=== PATIENT | male | born 1950 | race Caucasian/White ===

== ENCOUNTER 2018-06-29 11:04 | Inpatient (IN) | payer MEDICARE, MEDICAID ==
[2018-06-29] MEDS ORDERED: Sodium Chloride 0.9% 1,000 ML IV ONE (11:36)
[2018-06-29 12:04] LABS: INR 0.94 (0.5-1.4); PROTHROMBIN TIME (TEST) 9.8 SECONDS (9.5-11.5)
[2018-06-29 12:10] LABS: ALB/GLOB RATIO 1.1 (1.0-1.8); ALBUMIN 3.9 gm/dL (4.2-5.5); ANION GAP 12.6 (7.0-16.0); BILIRUBIN,TOTAL 0.4 mg/dL (0.3-1.0); CALCIUM SERUM 10.2 mg/dL (8.6-10.3); CARBON DIOXIDE 28.1 mEq/L (21.0-31.0); CREATININE - SERUM 1.8 mg/dL (0.7-1.3); GFR AFRICAN-AMERICAN 48.9 ml/min (>90); GFR NON AFRICAN-AMERICAN 40.4 ml/min; POTASSIUM SERUM 4.7 mEq/L (3.5-5.1); TOTAL PROTEIN,SERUM 7.5 gm/dL (6.0-8.3)
--- NOTE | 2018-06-29 12:14 | ED Physician Chart ---
ED Chief Complaint/HPI - Patient Information Date Seen:: 06/29/18 Time Seen:: 11:05 Chief Complaint:: Back Pain History of Present Illness:: onset x 2 days of intermittent, sharp, low back pain and flank pain; pt denies trauma, SIs, LOC, ALOCC, AMS, H/As, S/T, neck pain, cough, C/P, SOB, Abd. Pain, A/N/V/D/C, fever, chills, or urinary s/s Allergies:: Allergies Allergy/AdvReac Type Severity Reaction Status Date / Time shellfish derived Allergy Verified 06/29/18 11:12 Vitals:: Vital Signs - 8 hr 06/29/18 11:05 Temp 98.3 F HR 73 RR 16 BP 159/94 O2 Sat % 95 Historian:: Patient, EMS Review:: Nurse's Note Reviewed, Old Chart Reviewed, EMS run form Reviewed ED Review of Systems - Review of Systems General/Constitutional: No fever, No chills, No weight loss, No weakness, No diaphoresis, No edema, No loss of appetite Skin: No skin lesions, No rash, No bruising Head: No headache, No light-headedness Eyes: No loss of vision, No pain, No diplopia ENT: No earache, No nasal drainage, No sore throat, No tinnitus Neck: No neck pain, No swelling, No thyromegaly, No stiffness, No mass noted Cardio Vascular: No chest pain, No palpitations, No PND, No orthopnea, No edema Pulmonary: No SOB, No cough, No sputum, No wheezing GI: No nausea, No vomiting, No diarrhea, No pain, No melena, No hematochezia, No constipation, No hematemesis G/U: No dysuria, No frequency, No hematuria, No nacturia Musculoskeletal: Bone or joint pain, Back pain, Muscle pain Endocrine: No polyuria, No polydipsia Psychiatric: Prior psych history, Depression, Anxiety, No suicidal ideation, No homicidal ideation, No auditory hallucination, No visual hallucination Hematopoietic: No bruising, No lymphadenopathy Allergic/Immuno: No urticaria, No angioedema Neurological: No syncope, No focal symptoms, No weakness, No paresthesia, No headache, Seizure, No dizziness, No confusion, No vertigo ED Past Medical History - Past Medical History Obtainable: Yes Past Medical History: HTN, Asthma/COPD, PUD/GERD, Seizures, Arthritis Family History: HTN Social History: Smoker, Alcohol, No Drug Use, Single, Care Facility Surgical History: None Psychiatricy History: Depression, Bipolar Medication: Reviewed Family Medical History - Family Member Mother History Unknown: Yes ED Physical Exam - Physical Examination General/Constitutional: Awake, Well-developed, well-nourished, Alert, No distress, GCS 15, Non-toxic appearing, Ambulatory Head: Atraumatic Eyes: Lids, conjuctiva normal, PERRL, EOMI Skin: Nl inspection, No rash, No skin lesions, No ecchymosis, Well hydrated, No lymphadenopathy ENMT: External ears, nose nl, TM canals nl, Nasal exam nl, Lips, teeth, gums nl , Oropharynx nl, Tonsils nl Neck: Nontender, Full ROM w/o pain, No JVD, No nuchal rigidity, No bruit, No mass, No stridor Respiratory: Nl effort/Exclusion, Clear to Auscultation, No Wheeze/Rhonchi/Rales Cardio Vascular: RRR, No murmur, gallop, rubs, NL S1 S2, Carotid/Femoral/Distal pulses equal bilaterally GI: No tenderness/rebounding/guarding, No organomegaly, No hernia, Normal BS's, Nondistended, No mass/bruits, No McBurney tenderness : No CVA tenderness Extremities: No tenderness or effusion, Full ROM, normal strength in all extremities, No edema, Normal digits & nails Neuro/Psych: Alert/oriented, DTR's symmetric, Normal sensory exam, Normal motor strength, Judgement/insight normal, Mood normal, Normal gait, No focal deficits Misc: Normal back, No paraspinal tenderness ED Labs/Radiology/EKG Results - Lab Results Comments:: Reviewed - Radiology Results Comments:: CXR: COPD; NAD; Abd./Pelvis CAT Scan: + left renal mass; left kidney hemorrhagic cysts; left renal stone - EKG Interpretations EKG Time:: 12:08 Rate & Rhythm: 72; NSR Comments:: non-specific st-t changes; LAE; Peaked T-Waves ED Septic Shock - . Is Septic Shock (SBP<90, OR Lactate>4 mmol\L) present?: No - <6hrs of presentation: Vital Signs: Vital Signs - 8 hr 01/02/19 11:05 Temp 98.3 F HR 73 RR 16 BP 159/94 O2 Sat % 95 ED Reassessment (Disposition) - Reassessment Reassessment Condition:: Improved - Diagnosis Diagnosis:: Back Pain; Low Back Pain; Flank Pain; COPD; Nephrolithiasis; Renal Calculus; Renal Cysts; Renal Mass; Hematuria; Dehydration; Pancreatitis; Hypoalbuminemia - Aftercare/Follow up Instructions Aftercare/Follow-Up Instructions:: Counseled pt regarding lab results/diagnosis & need follow up, Counseled pt & family regarding lab results/diagnosis & need follow up - Patient Disposition Discharge/Transfer:: Acute Care w/in this hosp Accepting Physician:: Dr. Jarquin Time Called:: 1300 Time Responded:: 13:00 Admitted to:: Telemetry Spoke to:: Dr. Jarquin Admitting Medical Physician:: Dr. Jarquin Condition at Disposition:: Stable, Improved
--- NOTE | 2018-06-29 12:20 | Diagnostic Imaging Report ---
CHEST X-RAY: AP view INDICATION: pain COMPARISON: None FINDINGS: Mild chronic lung changes seen with biapical pleural thickening and probable COPD. There is no focal consolidation or pleural effusions The heart is normal in size. The osseous structures demonstrate no acute abnormalities. IMPRESSION: Mild chronic lung changes and probable COPD. No focal consolidation identified.
--- NOTE | 2018-06-29 12:30 | Diagnostic Imaging Report ---
CT abdomen and pelvis without intravenous contrast Indication: Abdominal pain Comparison: None, Technique: Axial images were obtained from the lung bases to the bilateral proximal femurs without IV contrast. Coronal reconstructions were made. total DLP: 397, CTDI7.7 FINDINGS: Hypoventilatory atelectatic changes of the lung bases are seen. Punctate faint tree-in-bud infiltrates of the lower lung zones are seen anteriorly. Mild atherosclerosis is noted. Evaluation of the solid organs is limited due to lack of IV contrast. Subcentimeter low-density lesion of the dome of the liver is noted to small to characterize but suggestive of cysts additional . 1.2 cm inferior pole hepatic cyst is also noted. No focal splenic lesions. No focal intrahepatic lesions. There is a heterogeneous mass lesion within the left kidney along the mid pole measuring 5.3 x 3.5 cm. Subcentimeter high density lesions of the left kidney are noted. Bilateral perinephric inflammatory changes are noted left greater than right. 2 mm nonobstructive inferior pole left renal stone is noted. Diverticulosis is noted with moderate stool throughout the colon nonspecific gas-filled bowel. No appendicitis. No free air free fluid. The osseous structures demonstrate no acute abnormalities. Mild degenerative changes are noted. IMPRESSION: Heterogeneous left renal mass measuring 4.6 x 4.3 cm not compatible with a cyst. Neoplastic process such as renal cell carcinoma may be considered. Recommend further assessment CT, dedicated renal mass protocol Additional subcentimeter high density lesions of the left kidney which may represent hemorrhagic cysts. Nonspecific bilateral perinephric inflammatory changes. 2 mm nonobstructive left renal stone. Moderate stool throughout the colon. Diverticulosis without evidence of diverticulitis Moderate atherosclerosis Minimal bibasal tree-in-bud infiltrate which is nonspecific and may be due to infectious or inflammatory process.
[2018-06-29 13:04] LABS: URINE SOURCE CLEAN C
[2018-06-29 13:18] LABS: URINE BILIRUBIN NEGATIVE (NEGATIVE); URINE BLOOD LARGE (NEGATIVE); URINE GLUCOSE (UA) NEGATIVE (NEGATIVE); URINE KETONE NEGATIVE (NEGATIVE); URINE LEUKOCYTE ESTERASE NEGATIVE (NEGATIVE); URINE MICROSCOPIC INDICATED? YES; URINE NITRATE NEGATIVE (NEGATIVE); URINE PH 6.5 (4.6 - 8.0); URINE PROTEIN 100 mg/dL (NEGATIVE); URINE UROBILINOGEN 0.2 E.U./dL (0.2 - 1.0)
[2018-06-29 13:35] LABS: URINE COLOR YELLOW
[2018-06-29 13:36] LABS: URINE BACTERIA NONE SEEN /hpf (NONE SEEN); URINE CLARITY SLIGHTLY HAZY (CLEAR); URINE EPITHELIAL CELLS OCCASIONAL /lpf (FEW); URINE WBC 0-2 /hpf (0-5)
[2018-06-29 13:47] LABS: WHITE BLOOD COUNT 14.8 Th/cmm (4.8-10.8)
[2018-06-29 13:48] LABS: % NEUTROPHILS 80.7 % (40.0-80.0); HEMATOCRIT 37.2 % (41.0-60); HEMOGLOBIN 12.4 gm/dL (12-16); MEAN CELL VOLUME 96.2 fl (80-99); MEAN CORPUSCULAR HEMOGLOBIN 32.2 pg (27.0-31.0); MEAN CORPUSCULAR HGB CONC 33.5 pg (28.0-36.0); MEAN PLATELET VOLUME 8.7 fl; PLATELET COUNT 278 Th/cmm (150-400); RED BLOOD COUNT 3.87 Mil/cmm (3.80-5.80); RED CELL DISTRIBUTION WIDTH 12.8 % (11.5-20.0)
[2018-06-29 13:49] LABS: % BASOPHILS 0.1 % (0.0-2.0); % EOSINOPHILS 0.1 % (0.0-5.0); % LYMPHOCYTES 7.6 % (20.0-50.0); % MONOCYTES 11.5 % (2.0-10.0); LYMPHOCYTE ABSOLUTE 1.1 Th/cmm (1.5-3.0); MONOCYTE ABSOLUTE 1.7 Th/cmm (0.3-1.0)
[2018-06-29] MEDS ORDERED: Maalox 30 mL Cup PO PRN (14:33)
[2018-06-29] MEDS ORDERED: Ipratropium Neb 0.5 mg/2.5 mL UD IH PRN (14:33)
[2018-06-29] MEDS ORDERED: Albuterol Nebulizer 2.5mg/3mL HHN PRN (14:33)
[2018-06-29] MEDS: D5-0.9%NS 1,000 ML IV SCH (15:40)
--- NOTE | 2018-06-29 15:46 | History & Physical ---
ADMIT DATE: 06/29/2018 CHIEF COMPLAINT: Severe back pain. HISTORY OF PRESENT ILLNESS: This is a 67-year-old male with history of COPD, chronic low back pain, herniated disk, psych disorder, admitted from nursing facility secondary to excruciating back pain, recently evaluated in the ER and noted to have hematuria as well as noted to have a mass on the left kidney. The patient is admitted for further management. PAST MEDICAL HISTORY: As mentioned in history of present illness. PAST SURGICAL HISTORY: Denies surgeries in the past. ALLERGIES: SHELLFISH. MEDICATIONS: Previously was on Depakote, Seroquel, trazodone. FAMILY HISTORY: Noncontributory. SOCIAL HISTORY: The patient is avid smoker, occasional drinker ____ unemployed, homeless time for several years. The patient was initially admitted to [facility] and a later to [facility]. REVIEW OF SYSTEMS: GENERAL: Complains not feeling well. HEENT: No blurred vision or pain. LUNGS: The patient does have COPD, chronic smoker. Denies asthma. HEART: No hypertension or coronary artery disease. ABDOMEN: Some nausea, no vomiting. EXTREMITIES: As mentioned above. RENAL: No blood in the urine. PSYCHIATRIC: See above. NEUROLOGIC: Denies seizure or headaches. PHYSICAL EXAMINATION: VITAL SIGNS: Blood pressure 135/81, respiration 16, pulse 101, temperature 99.0. GENERAL: Elderly male, appears of stated age. NECK: Supple. No mass. LUNGS: Equal breath sounds, few rhonchi. HEART: Regular rate and rhythm. Systolic ejection murmur. ABDOMEN: Soft, globular. EXTREMITIES: Positive excoriation. NEUROLOGIC: Limited. LABORATORY DATA: WBC 14, hemoglobin 12, platelets 278. Sodium 137, potassium 4.7, BUN 27, creatinine 1.8. BNP 115. Lipase 137. RBC urine is 5 ____ blood. ASSESSMENT AND PLAN: Acute back pain, new diagnosis like left kidney mass on CT, renal insufficiency, COPD, low back pain, psych disorder, leukocytosis, elevated lipase, hematuria. We will continue the patient on aggressive IV hydration. We will review the patient's CT and plan accordingly. We will refer the patient to Hematology/Oncology. We will review the patient's medication. We will admit for further management. JOB# [id number]
[2018-06-30] MEDS: D5-0.9%NS 1,000 ML IV SCH ×2 (01:36→15:31)
--- NOTE | 2018-06-30 12:57 | Internal Medicine Prog Note ---
Internal Medicine Subjective - Subjective Patient seen and examined:: with staff, chart reviewed Patient is:: awake, verbal, interactive, in bed Patient Complaints of:: congestion, pain with urination Per staff patient has:: no adverse event, no episodes of fall, poor appetite, tolerating meds Internal Medicine Objective - Results Result Diagrams: 06/29/18 11:45 06/29/18 11:45 Recent Labs: Laboratory Last Values WBC 14.8 Th/cmm (4.8-10.8) H 06/29/18 11:45 RBC 3.87 Mil/cmm (3.80-5.80) 06/29/18 11:45 Hgb 12.4 gm/dL (12-16) 06/29/18 11:45 Hct 37.2 % (41.0-60) L 06/29/18 11:45 MCV 96.2 fl (80-99) 06/29/18 11:45 MCH 32.2 pg (27.0-31.0) H 06/29/18 11:45 MCHC Differential 33.5 pg (28.0-36.0) 06/29/18 11:45 RDW 12.8 % (11.5-20.0) 06/29/18 11:45 Plt Count 278 Th/cmm (150-400) 06/29/18 11:45 MPV 8.7 fl 06/29/18 11:45 Neutrophils % 80.7 % (40.0-80.0) H 06/29/18 11:45 Lymphocytes % 7.6 % (20.0-50.0) L 06/29/18 11:45 Monocytes % 11.5 % (2.0-10.0) H 06/29/18 11:45 Eosinophils % 0.1 % (0.0-5.0) 06/29/18 11:45 Basophils % 0.1 % (0.0-2.0) 06/29/18 11:45 PT 9.8 SECONDS (9.5-11.5) 06/29/18 11:45 INR 0.94 (0.5-1.4) 06/29/18 11:45 Sodium 137 mEq/L (136-145) 06/29/18 11:45 Potassium 4.7 mEq/L (3.5-5.1) 06/29/18 11:45 Chloride 101 mEq/L (98-107) 06/29/18 11:45 Carbon Dioxide 28.1 mEq/L (21.0-31.0) 06/29/18 11:45 Anion Gap 12.6 (7.0-16.0) 06/29/18 11:45 BUN 27 mg/dL (7-25) H 06/29/18 11:45 Creatinine 1.8 mg/dL (0.7-1.3) H 06/29/18 11:45 Est GFR ( Amer) 48.9 ml/min (>90) 06/29/18 11:45 Est GFR (Non-Af Amer) 40.4 ml/min 06/29/18 11:45 BUN/Creatinine Ratio 15.0 06/29/18 11:45 Glucose 101 mg/dL (70-105) 06/29/18 11:45 Calcium 10.2 mg/dL (8.6-10.3) 06/29/18 11:45 Total Bilirubin 0.4 mg/dL (0.3-1.0) 06/29/18 11:45 AST 20 U/L (13-39) 06/29/18 11:45 ALT 11 U/L (7-52) 06/29/18 11:45 Alkaline Phosphatase 74 U/L (34-104) 06/29/18 11:45 Creatine Kinase 159 U/L (30-223) 06/29/18 11:45 Troponin I 0.01 ng/mL (0.01-0.05) 06/29/18 11:45 B-Natriuretic Peptide 115.0 pg/mL (5.0-100.0) H 06/29/18 11:45 Total Protein 7.5 gm/dL (6.0-8.3) 06/29/18 11:45 Albumin 3.9 gm/dL (4.2-5.5) L 06/29/18 11:45 Globulin 3.6 gm/dL 06/29/18 11:45 Albumin/Globulin Ratio 1.1 (1.0-1.8) 06/29/18 11:45 Triglycerides 81 mg/dL (<150) 06/29/18 11:45 Cholesterol 192 mg/dL (<200) 06/29/18 11:45 LDL Cholesterol Direct 129 mg/dL (75-193) 06/29/18 11:45 HDL Cholesterol 56 mg/dL (23-92) 06/29/18 11:45 Amylase 138 U/L (29-103) H 06/29/18 11:45 Lipase 97 U/L (11-82) H 06/29/18 11:45 Urine Source CLEAN C 06/29/18 12:58 Urine Color YELLOW 06/29/18 12:58 Urine Clarity SLIGHTLY HAZY (CLEAR) 06/29/18 12:58 Urine pH 6.5 (4.6 - 8.0) 06/29/18 12:58 Ur Specific [place] 1.015 (1.005-1.030) 06/29/18 12:58 Urine Protein 100 mg/dL (NEGATIVE) H 06/29/18 12:58 Urine Glucose (UA) NEGATIVE mg/dL (NEGATIVE) 06/29/18 12:58 Urine Ketones NEGATIVE mg/dL (NEGATIVE) 06/29/18 12:58 Urine Blood LARGE (NEGATIVE) H 06/29/18 12:58 Urine Nitrate NEGATIVE (NEGATIVE) 06/29/18 12:58 Urine Bilirubin NEGATIVE (NEGATIVE) 06/29/18 12:58 Urine Urobilinogen 0.2 E.U./dL (0.2 - 1.0) 06/29/18 12:58 Ur Leukocyte Esterase NEGATIVE (NEGATIVE) 06/29/18 12:58 Urine RBC 2-5 /hpf (0-5) H 06/29/18 12:58 Urine WBC 0-2 /hpf (0-5) 06/29/18 12:58 Ur Epithelial Cells OCCASIONAL /lpf (FEW) 06/29/18 12:58 Urine Bacteria NONE SEEN /hpf (NONE SEEN) 06/29/18 12:58 Valproic Acid 47.3 ug/mL (50.0-100.0) L 06/29/18 11:45 - Physical Exam Vitals and I&O: Vital Signs Temp 98.2 F 06/30/18 08:00 Pulse 73 06/30/18 08:00 Resp 18 06/30/18 08:00 BP 161/87 06/30/18 08:00 Pulse Ox 97 06/30/18 08:00 Intake & Output 06/29/18 06/30/18 06/30/18 18:59 06:59 18:59 Intake Total 950 1573.333 Balance 950 1573.333 Weight (lbs) 62.142 kg 62.142 kg Intake: Intake, IV Amount 993.333 D5-0.9%Ns 1,000 ml @ 100 993.333 mls/hr IV .Q10H [facility] Rx#: [id number] Oral 950 580 Other: # Voids 1 3 # Bowel Movements 0 Weight Source Bedscale Bedscale Active Medications: Current Medications Acetaminophen (Tylenol) 650 mg PO Q4H PRN PRN Reason: Pain Or Fever above 101 Stop: 08/28/18 14:32 Last Admin: 06/30/18 12:05 Dose: 650 mg Al Hydrox/Mg Hydrox/Simethicone (Maalox) 30 ml PO Q6H PRN PRN Reason: Dyspepsia Stop: 08/28/18 14:32 Albuterol Sulfate (Albuterol 2.5mg/3ml Neb Ud) 2.5 mg HHN Q2HRT PRN PRN Reason: Shortness of Breath or Wheeze Stop: 08/28/18 14:32 Aripiprazole (Abilify) 15 mg PO HS [facility]; Protocol Stop: 08/28/18 20:59 Divalproex Sodium (Depakote Dr) 1,000 mg PO 1300 [facility]; Protocol Stop: 08/29/18 12:59 Last Admin: 06/30/18 12:04 Dose: 1,000 mg Escitalopram Oxalate (Lexapro) 10 mg PO DAILY [facility]; Protocol Stop: 08/29/18 08:59 Last Admin: 06/30/18 09:09 Dose: 10 mg Dextrose/Sodium Chloride (D5-0.9%Ns) 1,000 mls @ 100 mls/hr IV .Q10H [facility] Stop: 08/28/18 14:44 Last Admin: 06/30/18 01:36 Dose: 100 mls/hr Ipratropium [place] (Atrovent Neb 0.5mg/2.5ml) 0.5 mg IH Q2HRT PRN PRN Reason: Shortness of Breath or Wheeze Stop: 08/28/18 14:32 Ondansetron HCl (Zofran) 4 mg IV Q8H PRN PRN Reason: Nausea / Vomiting Stop: 08/28/18 14:32 Trazodone HCl (Desyrel) 50 mg PO [facility]; Protocol Stop: 08/28/18 20:59 Zolpidem Tartrate (Ambien) 10 mg PO HS PRN PRN Reason: Insomnia Stop: 08/28/18 14:32 General: weak, appears older HEENT: NC/AT, PERRLA, thinning hair, poor dentition Neck: Supple, No JVD, No LAD Lungs: CTAB Cardiovascular: RRR, Normal S1, Normal S2, without murmur Abdomen: soft, non-tender, globular, positive bowel sound Extremities: excoriation, contracture Neurological: no change, disorganized Internal Medicine Assmt/Plan - Assessment Assessment: ASSESSMENT AND PLAN: Acute back pain, new diagnosis like left kidney mass on CT, renal insufficiency, COPD, low back pain, psych disorder, leukocytosis, elevated lipase, hematuria. - Plan Plan: We will continue the patient on aggressive IV hydration. We will review the patient's CT and plan accordingly. We will refer the patient to Hematology/Oncology. We will review the patient's medication. We will admit for further management.
[2018-07-01] MEDS: D5-0.9%NS 1,000 ML IV SCH ×3 (02:00→20:12)
[2018-07-01 07:13] LABS: HEMATOCRIT 31.2 % (41.0-60); HEMOGLOBIN 10.6 gm/dL (12-16); MEAN CELL VOLUME 94.7 fl (80-99); MEAN CORPUSCULAR HEMOGLOBIN 32.1 pg (27.0-31.0); MEAN CORPUSCULAR HGB CONC 33.8 pg (28.0-36.0); MEAN PLATELET VOLUME 7.9 fl; PLATELET COUNT 243 Th/cmm (150-400); RED BLOOD COUNT 3.29 Mil/cmm (3.80-5.80); RED CELL DISTRIBUTION WIDTH 12.5 % (11.5-20.0); WHITE BLOOD COUNT 10.9 Th/cmm (4.8-10.8)
[2018-07-01 07:31] LABS: ALBUMIN 3.2 gm/dL (4.2-5.5); ANION GAP 10.2 (7.0-16.0); BILIRUBIN,TOTAL 0.4 mg/dL (0.3-1.0); CALCIUM SERUM 9.4 mg/dL (8.6-10.3); CARBON DIOXIDE 26.4 mEq/L (21.0-31.0); CREATININE - SERUM 1.7 mg/dL (0.7-1.3); GFR AFRICAN-AMERICAN 52.3 ml/min (>90); GFR NON AFRICAN-AMERICAN 43.2 ml/min; MAGNESIUM 1.9 mg/dL (1.9-2.7); POTASSIUM SERUM 4.6 mEq/L (3.5-5.1); TOTAL PROTEIN,SERUM 6.4 gm/dL (6.0-8.3)
[2018-07-01 08:04] LABS: BAND NEUTROPHILE 2 % (0-10); BASOPHIL 0 % (0-3); EOSINOPHIL 2 % (0-5); LYMPHOCYTE 12 % (20-50); MONOCYTE 13 % (2-10); NEUTROPHILS 71 % (40-80)
--- NOTE | 2018-07-01 13:08 | Internal Medicine Prog Note ---
Internal Medicine Subjective - Subjective Patient seen and examined:: with staff, chart reviewed Patient is:: awake, verbal, interactive, in bed Patient Complaints of:: congestion, pain with urination Per staff patient has:: no adverse event, no episodes of fall, poor appetite, tolerating meds Internal Medicine Objective - Results Result Diagrams: 07/01/18 06:45 07/01/18 06:45 Recent Labs: Laboratory Last Values WBC 10.9 Th/cmm (4.8-10.8) H 07/01/18 06:45 RBC 3.29 Mil/cmm (3.80-5.80) L 07/01/18 06:45 Hgb 10.6 gm/dL (12-16) L 07/01/18 06:45 Hct 31.2 % (41.0-60) L 07/01/18 06:45 MCV 94.7 fl (80-99) 07/01/18 06:45 MCH 32.1 pg (27.0-31.0) H 07/01/18 06:45 MCHC Differential 33.8 pg (28.0-36.0) 07/01/18 06:45 RDW 12.5 % (11.5-20.0) 07/01/18 06:45 Plt Count 243 Th/cmm (150-400) 07/01/18 06:45 MPV 7.9 fl 07/01/18 06:45 Add Manual Diff YES 07/01/18 06:45 Neutrophils % 80.7 % (40.0-80.0) H 06/29/18 11:45 Band Neutrophils % 2 % (0-10) 07/01/18 06:45 Lymphocytes % 7.6 % (20.0-50.0) L 06/29/18 11:45 Monocytes % 11.5 % (2.0-10.0) H 06/29/18 11:45 Eosinophils % 0.1 % (0.0-5.0) 06/29/18 11:45 Basophils % 0.1 % (0.0-2.0) 06/29/18 11:45 Neutrophils (Manual) 71 % (40-80) 07/01/18 06:45 Lymphocytes 12 % (20-50) L 07/01/18 06:45 Monocytes 13 % (2-10) H 07/01/18 06:45 Eosinophils 2 % (0-5) 07/01/18 06:45 Basophils 0 % (0-3) 07/01/18 06:45 PT 9.8 SECONDS (9.5-11.5) 06/29/18 11:45 INR 0.94 (0.5-1.4) 06/29/18 11:45 Sodium 140 mEq/L (136-145) 07/01/18 06:45 Potassium 4.6 mEq/L (3.5-5.1) 07/01/18 06:45 Chloride 108 mEq/L (98-107) H 07/01/18 06:45 Carbon Dioxide 26.4 mEq/L (21.0-31.0) 07/01/18 06:45 Anion Gap 10.2 (7.0-16.0) 07/01/18 06:45 BUN 22 mg/dL (7-25) 07/01/18 06:45 Creatinine 1.7 mg/dL (0.7-1.3) H 07/01/18 06:45 Est GFR ( Amer) 52.3 ml/min (>90) 07/01/18 06:45 Est GFR (Non-Af Amer) 43.2 ml/min 07/01/18 06:45 BUN/Creatinine Ratio 12.9 07/01/18 06:45 Glucose 92 mg/dL (70-105) 07/01/18 06:45 Calcium 9.4 mg/dL (8.6-10.3) 07/01/18 06:45 Magnesium 1.9 mg/dL (1.9-2.7) 07/01/18 06:45 Total Bilirubin 0.4 mg/dL (0.3-1.0) 07/01/18 06:45 AST 16 U/L (13-39) 07/01/18 06:45 ALT 8 U/L (7-52) 07/01/18 06:45 Alkaline Phosphatase 54 U/L (34-104) 07/01/18 06:45 Creatine Kinase 159 U/L (30-223) 06/29/18 11:45 Troponin I 0.01 ng/mL (0.01-0.05) 06/29/18 11:45 B-Natriuretic Peptide 163.0 pg/mL (5.0-100.0) H 07/01/18 06:45 Total Protein 6.4 gm/dL (6.0-8.3) 07/01/18 06:45 Albumin 3.2 gm/dL (4.2-5.5) L 07/01/18 06:45 Globulin 3.2 gm/dL 07/01/18 06:45 Albumin/Globulin Ratio 1.0 (1.0-1.8) 07/01/18 06:45 Triglycerides 81 mg/dL (<150) 06/29/18 11:45 Cholesterol 192 mg/dL (<200) 06/29/18 11:45 LDL Cholesterol Direct 129 mg/dL (75-193) 06/29/18 11:45 HDL Cholesterol 56 mg/dL (23-92) 06/29/18 11:45 Amylase 138 U/L (29-103) H 06/29/18 11:45 Lipase 97 U/L (11-82) H 06/29/18 11:45 Urine Source CLEAN C 06/29/18 12:58 Urine Color YELLOW 06/29/18 12:58 Urine Clarity SLIGHTLY HAZY (CLEAR) 06/29/18 12:58 Urine pH 6.5 (4.6 - 8.0) 06/29/18 12:58 Ur Specific [place] 1.015 (1.005-1.030) 06/29/18 12:58 Urine Protein 100 mg/dL (NEGATIVE) H 06/29/18 12:58 Urine Glucose (UA) NEGATIVE mg/dL (NEGATIVE) 06/29/18 12:58 Urine Ketones NEGATIVE mg/dL (NEGATIVE) 06/29/18 12:58 Urine Blood LARGE (NEGATIVE) H 06/29/18 12:58 Urine Nitrate NEGATIVE (NEGATIVE) 06/29/18 12:58 Urine Bilirubin NEGATIVE (NEGATIVE) 06/29/18 12:58 Urine Urobilinogen 0.2 E.U./dL (0.2 - 1.0) 06/29/18 12:58 Ur Leukocyte Esterase NEGATIVE (NEGATIVE) 06/29/18 12:58 Urine RBC 2-5 /hpf (0-5) H 06/29/18 12:58 Urine WBC 0-2 /hpf (0-5) 06/29/18 12:58 Ur Epithelial Cells OCCASIONAL /lpf (FEW) 06/29/18 12:58 Urine Bacteria NONE SEEN /hpf (NONE SEEN) 06/29/18 12:58 Valproic Acid 47.3 ug/mL (50.0-100.0) L 06/29/18 11:45 - Physical Exam Vitals and I&O: Vital Signs Temp 97.6 F 07/01/18 12:12 Pulse 92 07/01/18 12:12 Resp 19 07/01/18 12:12 BP 145/81 07/01/18 12:12 Pulse Ox 100 07/01/18 12:12 Intake & Output 06/30/18 07/01/18 07/01/18 18:59 06:59 18:59 Intake Total 1000 1300 Output Total 1400 Balance 1000 -100 Weight (lbs) 61.915 kg Intake: Intake, IV Amount 1000 1000 D5-0.9%Ns 1,000 ml @ 100 1000 1000 mls/hr IV .Q10H [facility] Rx#: [id number] Oral 300 Output: Urine 1400 Other: # Bowel Movements 0 Weight Source Bedscale Active Medications: Current Medications Acetaminophen (Tylenol) 650 mg PO Q4H PRN PRN Reason: Pain Or Fever above 101 Stop: 08/28/18 14:32 Last Admin: 06/30/18 21:43 Dose: 650 mg Al Hydrox/Mg Hydrox/Simethicone (Maalox) 30 ml PO Q6H PRN PRN Reason: Dyspepsia Stop: 08/28/18 14:32 Albuterol Sulfate (Albuterol 2.5mg/3ml Neb Ud) 2.5 mg HHN Q2HRT PRN PRN Reason: Shortness of Breath or Wheeze Stop: 08/28/18 14:32 Aripiprazole (Abilify) 15 mg PO HS [facility]; Protocol Stop: 08/28/18 20:59 Last Admin: 06/30/18 21:41 Dose: Not Given Divalproex Sodium (Depakote Dr) 1,000 mg PO 1300 [facility]; Protocol Stop: 08/29/18 12:59 Last Admin: 06/30/18 12:04 Dose: 1,000 mg Escitalopram Oxalate (Lexapro) 10 mg PO DAILY [facility]; Protocol Stop: 08/29/18 08:59 Last Admin: 07/01/18 10:20 Dose: 10 mg Dextrose/Sodium Chloride (D5-0.9%Ns) 1,000 mls @ 100 mls/hr IV .Q10H [facility] Stop: 08/28/18 14:44 Last Admin: 07/01/18 02:00 Dose: 100 mls/hr Ipratropium [place] (Atrovent Neb 0.5mg/2.5ml) 0.5 mg IH Q2HRT PRN PRN Reason: Shortness of Breath or Wheeze Stop: 08/28/18 14:32 Ondansetron HCl (Zofran) 4 mg IV Q8H PRN PRN Reason: Nausea / Vomiting Stop: 08/28/18 14:32 Trazodone HCl (Desyrel) 50 mg PO HS [facility]; Protocol Stop: 08/28/18 20:59 Last Admin: 06/30/18 21:41 Dose: 50 mg Zolpidem Tartrate (Ambien) 10 mg PO HS PRN PRN Reason: Insomnia Stop: 08/28/18 14:32 General: weak, appears older HEENT: NC/AT, PERRLA, thinning hair, poor dentition Neck: Supple, No JVD, No LAD Lungs: CTAB Cardiovascular: RRR, Normal S1, Normal S2, without murmur Abdomen: soft, non-tender, globular, positive bowel sound Extremities: excoriation, contracture Neurological: no change, disorganized Internal Medicine Assmt/Plan - Assessment Assessment: ASSESSMENT AND PLAN: Acute back pain, new diagnosis left kidney mass on CT, renal insufficiency, COPD, low back pain, psych disorder, leukocytosis, elevated lipase, hematuria. - Plan Plan: We will continue the patient on aggressive IV hydration. We will review the patient's CT and plan accordingly. We will refer the patient to Hematology/Oncology. We will review the patient's medication. We will admit for further management.
--- NOTE | 2018-07-01 21:27 | History & Physical ---
ADMIT DATE: 07/01/2018 REFERRING PHYSICIAN: Dr. Jarquin. REASON FOR CONSULTATION: Kidney mass. HISTORY OF PRESENT ILLNESS: The patient is a 67-year-old pleasant person who spent many years in [place] and moved over to [place]. He has been complaining of left flank pain that was evaluated with a CT scan of the abdomen reporting left kidney mass; therefore, I was asked to evaluate. PAST MEDICAL HISTORY: COPD, chronic back pain, psych disorder. SOCIAL HISTORY: Resides in a convalescent home because of the chronic back pain. PAST SURGICAL HISTORY: None. MEDICATIONS: Reviewed, on Abilify, Depakote, Lexapro, Zofran, Desyrel, Ambien. PHYSICAL EXAMINATION: GENERAL: The patient is awake, cooperative. VITAL SIGNS: Stable. HEENT: Atraumatic. NECK: No lymphadenopathy. CHEST: Good air entry. ABDOMEN: Soft. No guarding or rebound. No palpable masses. EXTREMITIES: No edema. NERVOUS SYSTEM: No focal deficits. LABORATORY DATA: White count 10.9, hemoglobin 10.6, platelets 243. INR 0.94, creatinine 1.7. Urinalysis, large blood. CT scan of the abdomen and pelvis 4.6 x 4.3. Heterogeneous left renal mass. A 2 mm nonobstructing left renal stone, diverticulosis, subcentimeter high density lesions of the left kidney, may represent hemorrhagic cyst. ASSESSMENT AND PLAN: Left kidney mass exceeding 4 cm, which is not cyst. The scan was done without contrast because of the renal functions. This mass is suspicious of renal cell carcinoma and will require evaluation by urologist for possible left partial or total nephrectomy. Thank you, Dr. Jarquin for the opportunity to participate in the care of this interesting case. JOB# [id number]
--- NOTE | 2018-07-02 13:16 | General Progress Note ---
Subjective - Review of Systems Service Date: 07/02/18 Subjective: left flank pain ambulatory Objective - Results Result Diagrams: 07/01/18 06:45 07/01/18 06:45 Recent Labs: Laboratory Last Values WBC 10.9 Th/cmm (4.8-10.8) H 07/01/18 06:45 RBC 3.29 Mil/cmm (3.80-5.80) L 07/01/18 06:45 Hgb 10.6 gm/dL (12-16) L 07/01/18 06:45 Hct 31.2 % (41.0-60) L 07/01/18 06:45 MCV 94.7 fl (80-99) 07/01/18 06:45 MCH 32.1 pg (27.0-31.0) H 07/01/18 06:45 MCHC Differential 33.8 pg (28.0-36.0) 07/01/18 06:45 RDW 12.5 % (11.5-20.0) 07/01/18 06:45 Plt Count 243 Th/cmm (150-400) 07/01/18 06:45 MPV 7.9 fl 07/01/18 06:45 Add Manual Diff YES 07/01/18 06:45 Neutrophils % 80.7 % (40.0-80.0) H 06/29/18 11:45 Band Neutrophils % 2 % (0-10) 07/01/18 06:45 Lymphocytes % 7.6 % (20.0-50.0) L 06/29/18 11:45 Monocytes % 11.5 % (2.0-10.0) H 06/29/18 11:45 Eosinophils % 0.1 % (0.0-5.0) 06/29/18 11:45 Basophils % 0.1 % (0.0-2.0) 06/29/18 11:45 Neutrophils (Manual) 71 % (40-80) 07/01/18 06:45 Lymphocytes 12 % (20-50) L 07/01/18 06:45 Monocytes 13 % (2-10) H 07/01/18 06:45 Eosinophils 2 % (0-5) 07/01/18 06:45 Basophils 0 % (0-3) 07/01/18 06:45 PT 9.8 SECONDS (9.5-11.5) 06/29/18 11:45 INR 0.94 (0.5-1.4) 06/29/18 11:45 Sodium 140 mEq/L (136-145) 07/01/18 06:45 Potassium 4.6 mEq/L (3.5-5.1) 07/01/18 06:45 Chloride 108 mEq/L (98-107) H 07/01/18 06:45 Carbon Dioxide 26.4 mEq/L (21.0-31.0) 07/01/18 06:45 Anion Gap 10.2 (7.0-16.0) 07/01/18 06:45 BUN 22 mg/dL (7-25) 07/01/18 06:45 Creatinine 1.7 mg/dL (0.7-1.3) H 07/01/18 06:45 Est GFR ( Amer) 52.3 ml/min (>90) 07/01/18 06:45 Est GFR (Non-Af Amer) 43.2 ml/min 07/01/18 06:45 BUN/Creatinine Ratio 12.9 07/01/18 06:45 Glucose 92 mg/dL (70-105) 07/01/18 06:45 Calcium 9.4 mg/dL (8.6-10.3) 07/01/18 06:45 Magnesium 1.9 mg/dL (1.9-2.7) 07/01/18 06:45 Total Bilirubin 0.4 mg/dL (0.3-1.0) 07/01/18 06:45 AST 16 U/L (13-39) 07/01/18 06:45 ALT 8 U/L (7-52) 07/01/18 06:45 Alkaline Phosphatase 54 U/L (34-104) 07/01/18 06:45 Creatine Kinase 159 U/L (30-223) 06/29/18 11:45 Troponin I 0.01 ng/mL (0.01-0.05) 06/29/18 11:45 B-Natriuretic Peptide 163.0 pg/mL (5.0-100.0) H 07/01/18 06:45 Total Protein 6.4 gm/dL (6.0-8.3) 07/01/18 06:45 Albumin 3.2 gm/dL (4.2-5.5) L 07/01/18 06:45 Globulin 3.2 gm/dL 07/01/18 06:45 Albumin/Globulin Ratio 1.0 (1.0-1.8) 07/01/18 06:45 Triglycerides 81 mg/dL (<150) 06/29/18 11:45 Cholesterol 192 mg/dL (<200) 06/29/18 11:45 LDL Cholesterol Direct 129 mg/dL (75-193) 06/29/18 11:45 HDL Cholesterol 56 mg/dL (23-92) 06/29/18 11:45 Amylase 138 U/L (29-103) H 06/29/18 11:45 Lipase 97 U/L (11-82) H 06/29/18 11:45 Urine Source CLEAN C 06/29/18 12:58 Urine Color YELLOW 06/29/18 12:58 Urine Clarity SLIGHTLY HAZY (CLEAR) 06/29/18 12:58 Urine pH 6.5 (4.6 - 8.0) 06/29/18 12:58 Ur Specific [place] 1.015 (1.005-1.030) 06/29/18 12:58 Urine Protein 100 mg/dL (NEGATIVE) H 06/29/18 12:58 Urine Glucose (UA) NEGATIVE mg/dL (NEGATIVE) 06/29/18 12:58 Urine Ketones NEGATIVE mg/dL (NEGATIVE) 06/29/18 12:58 Urine Blood LARGE (NEGATIVE) H 06/29/18 12:58 Urine Nitrate NEGATIVE (NEGATIVE) 06/29/18 12:58 Urine Bilirubin NEGATIVE (NEGATIVE) 06/29/18 12:58 Urine Urobilinogen 0.2 E.U./dL (0.2 - 1.0) 06/29/18 12:58 Ur Leukocyte Esterase NEGATIVE (NEGATIVE) 06/29/18 12:58 Urine RBC 2-5 /hpf (0-5) H 06/29/18 12:58 Urine WBC 0-2 /hpf (0-5) 06/29/18 12:58 Ur Epithelial Cells OCCASIONAL /lpf (FEW) 06/29/18 12:58 Urine Bacteria NONE SEEN /hpf (NONE SEEN) 06/29/18 12:58 Valproic Acid 47.3 ug/mL (50.0-100.0) L 06/29/18 11:45 - Physical Exam Vitals and I&O: Vital Signs Temp 98.7 F 07/02/18 12:00 Pulse 77 07/02/18 12:00 Resp 18 07/02/18 12:00 BP 137/89 07/02/18 12:00 Pulse Ox 100 07/02/18 12:00 Intake & Output 07/01/18 07/02/18 07/02/18 18:59 06:59 18:59 Intake Total 1550 1200 Output Total 1780 1700 Balance -230 -500 Weight (lbs) 61.915 kg 62.913 kg Intake: Intake, IV Amount 1000 D5-0.9%Ns 1,000 ml @ 100 1000 mls/hr IV .Q10H [facility] Rx#: [id number] Oral 1550 200 Output: Urine 1780 1700 Other: # Bowel Movements 1 Weight Source Bedscale Bedscale Active Medications: Current Medications Acetaminophen (Tylenol) 650 mg PO Q4H PRN PRN Reason: Pain Or Fever above 101 Stop: 08/28/18 14:32 Last Admin: 07/01/18 21:00 Dose: 650 mg Al Hydrox/Mg Hydrox/Simethicone (Maalox) 30 ml PO Q6H PRN PRN Reason: Dyspepsia Stop: 08/28/18 14:32 Albuterol Sulfate (Albuterol 2.5mg/3ml Neb Ud) 2.5 mg HHN Q2HRT PRN PRN Reason: Shortness of Breath or Wheeze Stop: 08/28/18 14:32 Aripiprazole (Abilify) 15 mg PO HS [facility]; Protocol Stop: 08/28/18 20:59 Last Admin: 07/01/18 20:11 Dose: Not Given Divalproex Sodium (Depakote Dr) 1,000 mg PO 1300 [facility]; Protocol Stop: 08/29/18 12:59 Last Admin: 07/02/18 12:42 Dose: 1,000 mg Escitalopram Oxalate (Lexapro) 10 mg PO DAILY [facility]; Protocol Stop: 08/29/18 08:59 Last Admin: 07/02/18 08:19 Dose: 10 mg Dextrose/Sodium Chloride (D5-0.9%Ns) 1,000 mls @ 100 mls/hr IV .Q10H [facility] Stop: 08/28/18 14:44 Last Admin: 07/01/18 20:12 Dose: 100 mls/hr Ipratropium [place] (Atrovent Neb 0.5mg/2.5ml) 0.5 mg IH Q2HRT PRN PRN Reason: Shortness of Breath or Wheeze Stop: 08/28/18 14:32 Ondansetron HCl (Zofran) 4 mg IV Q8H PRN PRN Reason: Nausea / Vomiting Stop: 08/28/18 14:32 Trazodone HCl (Desyrel) 50 mg PO HS [facility]; Protocol Stop: 08/28/18 20:59 Last Admin: 07/01/18 20:11 Dose: 50 mg Zolpidem Tartrate (Ambien) 10 mg PO HS PRN PRN Reason: Insomnia Stop: 08/28/18 14:32 General: Alert HEENT: Atraumatic Neck: Supple Cardiovascular: Regular rate Lungs: Clear to auscultation Abdomen: Soft Assessment/Plan - Assessment Assessment: Left kidney mass exceeding 4 cm, which is not cyst. The scan was done without contrast because of the renal functions. This mass is suspicious of renal cell carcinoma and will require evaluation by urologist for possible left partial or total nephrectomy. Nutritional Asmnt/Malnutr-PDOC - Dietary Evaluation Malnutrition Findings (Please click <Entered> for more info): Nutritional Asmnt/Malnutrition Start: 07/01/18 14: 23 Text: Status: Complete Freq: Protocol: Document 07/01/18 14:27 [email or web address] (Rec: 07/01/18 14:37 [email or web address] VI) Nutritional Asmnt/Malnutrition Patient General Information Nutritional Screening Moderate Risk Diagnosis kidney mass, left lower back pain Pertinent Medical Hx/Surgical Hx COPD, chronic low back pain, herniated disk, psych disorder Subjective Information Pt was in bed, alert, at time of visit. Educated pt on renal diet. Pt requested 2 coffees for breakfast and hot tea for dinner. PO intake is 75-100% per EMR. Current Diet Order/ Nutrition Support renal Patient / S.O Can Pertinent Medications D5-0.9%ns, zofran Pertinent Labs 07/01 cl 108, cr 1.7, alb 3.2 1/2 BUN 27, cr 1.8, alb 3.9 Nutritional Hx/Data Height 1.73 m Height (Calculated Centimeters) 172.7 Current Weight (lbs) 61.689 kg Weight (Calculated Kilograms) 61.7 Weight (Calculated Grams) 39507.6 [place] Body Weight 154 Body Mass Index (BMI) 20.7 Weight Status Approriate GI Symptoms GI Symptoms None Last BM not indicated Difficult in: None Food Allergies Yes: shellfish derived Usual diet at home Pt has been following renal diet d/t renal dysfunction, understanding protein restriction. Skin Integrity/Comment: matthew carter 21 Current %PO Good (75-100%) Estimated Nutritional Goals BEE in Kcals: Using Current wt Calories/Kcals/Kg 25-30 Kcals Calculated 7647-6489 Protein: Using Current wt Protein g/k.75-0.8 Protein Calculated 45-49 Fluid: ml 6547-1858 (1ml/kcal) Nutritional Problem 1. Problem Problem altered nutrition related lab values Etiology renal dysfunction Signs/Symptoms: BUN 22-27, Cr 1.7-1.8 Malnutrition Alert Is there a minimum of two criteria No selected? Query Text:Check all the applicable criteria. A minimum of two criteria are recommended for diagnosis of either severe or non-severe malnutrition. Malnutrition Related to Morbid Obesity Malnutrition related to morbid obesity No Intervention/Recommendation Comments 1. Continue with renal diet as ordered. 2. Monitor PO intake, wt, labs and skin integrity 3. F/U as moderate risk in 3-5 days Expected Outcomes/Goals Expected Outcomes/Goals Goal: PO intake to meet at least 75% of nutritional needs and improved labs. Reviewed by Vijaya Tinajero RD
--- NOTE | 2018-07-02 14:27 | Internal Medicine Prog Note ---
Internal Medicine Subjective - Subjective Service Date: 07/02/18 Patient is:: awake, verbal, interactive, in bed Patient Complaints of:: congestion, pain with urination Per staff patient has:: no adverse event, no episodes of fall, poor appetite, tolerating meds Internal Medicine Objective - Results Result Diagrams: 07/01/18 06:45 07/01/18 06:45 Recent Labs: Laboratory Last Values WBC 10.9 Th/cmm (4.8-10.8) H 07/01/18 06:45 RBC 3.29 Mil/cmm (3.80-5.80) L 07/01/18 06:45 Hgb 10.6 gm/dL (12-16) L 07/01/18 06:45 Hct 31.2 % (41.0-60) L 07/01/18 06:45 MCV 94.7 fl (80-99) 07/01/18 06:45 MCH 32.1 pg (27.0-31.0) H 07/01/18 06:45 MCHC Differential 33.8 pg (28.0-36.0) 07/01/18 06:45 RDW 12.5 % (11.5-20.0) 07/01/18 06:45 Plt Count 243 Th/cmm (150-400) 07/01/18 06:45 MPV 7.9 fl 07/01/18 06:45 Add Manual Diff YES 07/01/18 06:45 Neutrophils % 80.7 % (40.0-80.0) H 06/29/18 11:45 Band Neutrophils % 2 % (0-10) 07/01/18 06:45 Lymphocytes % 7.6 % (20.0-50.0) L 06/29/18 11:45 Monocytes % 11.5 % (2.0-10.0) H 06/29/18 11:45 Eosinophils % 0.1 % (0.0-5.0) 06/29/18 11:45 Basophils % 0.1 % (0.0-2.0) 06/29/18 11:45 Neutrophils (Manual) 71 % (40-80) 07/01/18 06:45 Lymphocytes 12 % (20-50) L 07/01/18 06:45 Monocytes 13 % (2-10) H 07/01/18 06:45 Eosinophils 2 % (0-5) 07/01/18 06:45 Basophils 0 % (0-3) 07/01/18 06:45 PT 9.8 SECONDS (9.5-11.5) 06/29/18 11:45 INR 0.94 (0.5-1.4) 06/29/18 11:45 Sodium 140 mEq/L (136-145) 07/01/18 06:45 Potassium 4.6 mEq/L (3.5-5.1) 07/01/18 06:45 Chloride 108 mEq/L (98-107) H 07/01/18 06:45 Carbon Dioxide 26.4 mEq/L (21.0-31.0) 07/01/18 06:45 Anion Gap 10.2 (7.0-16.0) 07/01/18 06:45 BUN 22 mg/dL (7-25) 07/01/18 06:45 Creatinine 1.7 mg/dL (0.7-1.3) H 07/01/18 06:45 Est GFR ( Amer) 52.3 ml/min (>90) 07/01/18 06:45 Est GFR (Non-Af Amer) 43.2 ml/min 07/01/18 06:45 BUN/Creatinine Ratio 12.9 07/01/18 06:45 Glucose 92 mg/dL (70-105) 07/01/18 06:45 Calcium 9.4 mg/dL (8.6-10.3) 07/01/18 06:45 Magnesium 1.9 mg/dL (1.9-2.7) 07/01/18 06:45 Total Bilirubin 0.4 mg/dL (0.3-1.0) 07/01/18 06:45 AST 16 U/L (13-39) 07/01/18 06:45 ALT 8 U/L (7-52) 07/01/18 06:45 Alkaline Phosphatase 54 U/L (34-104) 07/01/18 06:45 Creatine Kinase 159 U/L (30-223) 06/29/18 11:45 Troponin I 0.01 ng/mL (0.01-0.05) 06/29/18 11:45 B-Natriuretic Peptide 163.0 pg/mL (5.0-100.0) H 07/01/18 06:45 Total Protein 6.4 gm/dL (6.0-8.3) 07/01/18 06:45 Albumin 3.2 gm/dL (4.2-5.5) L 07/01/18 06:45 Globulin 3.2 gm/dL 07/01/18 06:45 Albumin/Globulin Ratio 1.0 (1.0-1.8) 07/01/18 06:45 Triglycerides 81 mg/dL (<150) 06/29/18 11:45 Cholesterol 192 mg/dL (<200) 06/29/18 11:45 LDL Cholesterol Direct 129 mg/dL (75-193) 06/29/18 11:45 HDL Cholesterol 56 mg/dL (23-92) 06/29/18 11:45 Amylase 138 U/L (29-103) H 06/29/18 11:45 Lipase 97 U/L (11-82) H 06/29/18 11:45 Urine Source CLEAN C 06/29/18 12:58 Urine Color YELLOW 06/29/18 12:58 Urine Clarity SLIGHTLY HAZY (CLEAR) 06/29/18 12:58 Urine pH 6.5 (4.6 - 8.0) 06/29/18 12:58 Ur Specific [place] 1.015 (1.005-1.030) 06/29/18 12:58 Urine Protein 100 mg/dL (NEGATIVE) H 06/29/18 12:58 Urine Glucose (UA) NEGATIVE mg/dL (NEGATIVE) 06/29/18 12:58 Urine Ketones NEGATIVE mg/dL (NEGATIVE) 06/29/18 12:58 Urine Blood LARGE (NEGATIVE) H 06/29/18 12:58 Urine Nitrate NEGATIVE (NEGATIVE) 06/29/18 12:58 Urine Bilirubin NEGATIVE (NEGATIVE) 06/29/18 12:58 Urine Urobilinogen 0.2 E.U./dL (0.2 - 1.0) 06/29/18 12:58 Ur Leukocyte Esterase NEGATIVE (NEGATIVE) 06/29/18 12:58 Urine RBC 2-5 /hpf (0-5) H 06/29/18 12:58 Urine WBC 0-2 /hpf (0-5) 06/29/18 12:58 Ur Epithelial Cells OCCASIONAL /lpf (FEW) 06/29/18 12:58 Urine Bacteria NONE SEEN /hpf (NONE SEEN) 06/29/18 12:58 Valproic Acid 47.3 ug/mL (50.0-100.0) L 06/29/18 11:45 - Physical Exam Vitals and I&O: Vital Signs Temp 98.7 F 07/02/18 12:00 Pulse 77 07/02/18 12:00 Resp 18 07/02/18 12:00 BP 137/89 07/02/18 12:00 Pulse Ox 100 07/02/18 12:00 Intake & Output 07/01/18 07/02/18 07/02/18 18:59 06:59 18:59 Intake Total 1550 1200 Output Total 1780 1700 Balance -230 -500 Weight (lbs) 136 lb 8 oz 138 lb 11.2 oz Intake: Intake, IV Amount 1000 D5-0.9%Ns 1,000 ml @ 100 1000 mls/hr IV .Q10H [facility] Rx#: [id number] Oral 1550 200 Output: Urine 1780 1700 Other: # Bowel Movements 1 Weight Source Bedscale Bedscale Active Medications: Current Medications Acetaminophen (Tylenol) 650 mg PO Q4H PRN PRN Reason: Pain Or Fever above 101 Stop: 08/28/18 14:32 Last Admin: 07/01/18 21:00 Dose: 650 mg Al Hydrox/Mg Hydrox/Simethicone (Maalox) 30 ml PO Q6H PRN PRN Reason: Dyspepsia Stop: 08/28/18 14:32 Albuterol Sulfate (Albuterol 2.5mg/3ml Neb Ud) 2.5 mg HHN Q2HRT PRN PRN Reason: Shortness of Breath or Wheeze Stop: 08/28/18 14:32 Aripiprazole (Abilify) 15 mg PO HS [facility]; Protocol Stop: 08/28/18 20:59 Last Admin: 07/01/18 20:11 Dose: Not Given Divalproex Sodium (Depakote Dr) 1,000 mg PO 1300 [facility]; Protocol Stop: 08/29/18 12:59 Last Admin: 07/02/18 12:42 Dose: 1,000 mg Escitalopram Oxalate (Lexapro) 10 mg PO DAILY [facility]; Protocol Stop: 08/29/18 08:59 Last Admin: 07/02/18 08:19 Dose: 10 mg Dextrose/Sodium Chloride (D5-0.9%Ns) 1,000 mls @ 100 mls/hr IV .Q10H [facility] Stop: 08/28/18 14:44 Last Admin: 07/01/18 20:12 Dose: 100 mls/hr Ipratropium [place] (Atrovent Neb 0.5mg/2.5ml) 0.5 mg IH Q2HRT PRN PRN Reason: Shortness of Breath or Wheeze Stop: 08/28/18 14:32 Ondansetron HCl (Zofran) 4 mg IV Q8H PRN PRN Reason: Nausea / Vomiting Stop: 08/28/18 14:32 Trazodone HCl (Desyrel) 50 mg PO HS [facility]; Protocol Stop: 08/28/18 20:59 Last Admin: 07/01/18 20:11 Dose: 50 mg Zolpidem Tartrate (Ambien) 10 mg PO HS PRN PRN Reason: Insomnia Stop: 08/28/18 14:32 General: weak, appears older HEENT: NC/AT, PERRLA, thinning hair, poor dentition Neck: Supple, No JVD, No LAD Lungs: CTAB Cardiovascular: RRR, Normal S1, Normal S2, without murmur Abdomen: soft, non-tender, globular, positive bowel sound Extremities: excoriation, contracture Neurological: no change, disorganized Internal Medicine Assmt/Plan - Assessment Assessment: SESSMENT AND PLAN: Acute back pain, new diagnosis left kidney mass on CT, renal insufficiency, COPD, low back pain, psych disorder, leukocytosis, elevated lipase, hematuria. - Plan Plan: cont iv abx follow up labs in am await for kidney u/s cont current plan of care Nutritional Asmnt/Malnutr-PDOC - Dietary Evaluation Malnutrition Findings (Please click <Entered> for more info): Nutritional Asmnt/Malnutrition Start: 07/01/18 14: 23 Text: Status: Complete Freq: Protocol: Document 07/01/18 14:27 [email or web address] (Rec: 07/01/18 14:37 [email or web address] VI) Nutritional Asmnt/Malnutrition Patient General Information Nutritional Screening Moderate Risk Diagnosis kidney mass, left lower back pain Pertinent Medical Hx/Surgical Hx COPD, chronic low back pain, herniated disk, psych disorder Subjective Information Pt was in bed, alert, at time of visit. Educated pt on renal diet. Pt requested 2 coffees for breakfast and hot tea for dinner. PO intake is 75-100% per EMR. Current Diet Order/ Nutrition Support renal Patient / S.O Can Pertinent Medications D5-0.9%ns, zofran Pertinent Labs 1/ cl 108, cr 1.7, alb 3.2 1/2 BUN 27, cr 1.8, alb 3.9 Nutritional Hx/Data Height 5 ft 8 in Height (Calculated Centimeters) 172.7 Current Weight (lbs) 136 lb Weight (Calculated Kilograms) 61.7 Weight (Calculated Grams) 48614.6 [place] Body Weight 154 Body Mass Index (BMI) 20.7 Weight Status Approriate GI Symptoms GI Symptoms None Last BM not indicated Difficult in: None Food Allergies Yes: shellfish derived Usual diet at home Pt has been following renal diet d/t renal dysfunction, understanding protein restriction. Skin Integrity/Comment: intact, matthew 21 Current %PO Good (75-100%) Estimated Nutritional Goals BEE in Kcals: Using Current wt Calories/Kcals/Kg 25-30 Kcals Calculated 7447-0877 Protein: Using Current wt Protein g/k.75-0.8 Protein Calculated 45-49 Fluid: ml 0749-5213 (1ml/kcal) Nutritional Problem 1. Problem Problem altered nutrition related lab values Etiology renal dysfunction Signs/Symptoms: BUN 22-27, Cr 1.7-1.8 Malnutrition Alert Is there a minimum of two criteria No selected? Query Text:Check all the applicable criteria. A minimum of two criteria are recommended for diagnosis of either severe or non-severe malnutrition. Malnutrition Related to Morbid Obesity Malnutrition related to morbid obesity No Intervention/Recommendation Comments 1. Continue with renal diet as ordered. 2. Monitor PO intake, wt, labs and skin integrity 3. F/U as moderate risk in 3-5 days Expected Outcomes/Goals Expected Outcomes/Goals Goal: PO intake to meet at least 75% of nutritional needs and improved labs. Reviewed by Vijaya Tinajero RD
--- NOTE | 2018-07-02 15:26 | Consultation ---
DATE OF CONSULTATION: 07/02/2018 REASON FOR CONSULTATION: Seen for left flank pain and renal mass. HISTORY OF PRESENT ILLNESS: The patient is a 67-year-old resident of a [facility] as he is [facility] and brought to the Emergency Room with acute left flank pain without any fevers, chills, nausea or vomiting. Also, denied dysuria or hematuria. This is the first time it has happened. After admission, it has resolved quickly with some pain medications. No past history of similar problems. No history of stone disease that he knows of and no urologic surgery. ALLERGIES: SHELLFISH. PAST SURGICAL HISTORY: Deviated septum in the nose, some frostbites or ischemia of the toes, and no other significant procedures. MEDICAL HISTORY: Diagnosis of bipolar disorder, takes medications off and on; History of substance abuse since young days, having tried LSD or cocaine, etc. 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 Denies diabetes, but apparently had transiently elevated blood pressure, not adequately treated. No heart disease. Claims to have had peripheral vascular disease. HOME MEDICATIONS: Depakote, Seroquel, trazodone, aripiprazole, cyclobenzaprine, Lexapro, and Desyrel. REVIEW OF SYSTEMS: Denies nocturia, slow stream UTIs or difficulty urinating. No vomiting or diarrhea. Denies chest pain, coughing, or shortness of breath. No sore throat or recent vision changes. No headache or seizures. Does have a history of substance abuse and probably continues to do so in a limited way. Does have the cervical arthritis. No skin rashes or joint swelling. PHYSICAL EXAMINATION: GENERAL: On exam, he is awake, alert, oriented, in no distress. Pleasant gentleman. VITAL SIGNS: Temperature 98.6, heart rate 73, blood pressure 147/84. No fever recorded here, but blood pressures have been up to 170 systolic and averaging 140 range as well for systolic pressures. HEAD AND NECK: Normocephalic. Trachea central. Pupils equal and reactive. No jaundice. Thyroid and lymph nodes not palpable. Carotid bruit absent. CHEST: Symmetrical. LUNGS: Clear. No rales or rhonchi. HEART: Sounds normal in sinus rhythm, no murmur. ABDOMEN: Soft, nontender, no organomegaly, mass, or hernia. GENITALIA: Normal male. Penis circumcised. No scrotal masses. RECTAL: Prostate is very small, less than 10 grams, smooth, benign and nontender. No nodules or suspicious areas. EXTREMITIES: No edema or lymphadenopathy. NEUROLOGIC: Nonfocal. Moves all 4 limbs. SOCIAL HISTORY: Once again he is homeless and has 2 sisters out of state and they were , does not have children. LABORATORY DATA: White count 10.9 down from 14.8 on admission, hemoglobin 10.6 down from 12.4 on admission. Platelets are normal. Slight left shift on the white count. PT/INR normal. Chemistries are normal, mildly elevated chloride. BUN 22, creatinine 1.7. Liver functions are normal. BNP elevated mildly. Amylase mildly elevated as well. Urine shows large amount of blood, but few red cells only. Toxic screen, valproic acid is 47.3 on the low side. CT of the abdomen and pelvis shows a 5.3 x 3.5 cm mass in the mid pole of the left kidney and a 2 mm stone in the inferior pole. Other kidney is reportedly normal and the renal mass measures 4.6 x 4.3 on another image and suspicious for renal cell carcinoma. The CT also shows bilateral perinephric stranding, indicative of some kind of inflammation in this area. Chest x-ray shows mild chronic changes, probable COPD, but nothing acute. IMPRESSION: 1. Incidental left renal mass, rule out malignancy. Renal ultrasound has been ordered and bladder ultrasound to make sure he does not have outlet obstruction and a postvoid residual to explain the perinephric inflammation. He will then require biopsy of this lesion for definitive diagnosis since his creatinine is elevated and we cannot give him contrast. Additionally, he has allergy to SHELLFISH that also limits the use of contrast. Hopefully, the biopsy can give a diagnostic result following which we can make recommendations of partial versus total nephrectomy if there is malignancy. Thus, discussion will be deferred until definitive diagnosis made. 2. History of bipolar disorder. 3. History of substance abuse. 4. History of peripheral vascular disease. 5. Untreated hypertension, probably with nephrosclerosis and compromised renal function may play an important role in the type of operation he will be recommended for the mass. JOB# [id number]
[2018-07-03] MEDS: D5-0.9%NS 1,000 ML IV SCH (03:07)
[2018-07-03 06:50] LABS: % BASOPHILS 0.7 % (0.0-2.0); % EOSINOPHILS 2.4 % (0.0-5.0); % LYMPHOCYTES 17.5 % (20.0-50.0); % MONOCYTES 14.6 % (2.0-10.0); % NEUTROPHILS 64.8 % (40.0-80.0); EOSINOPHILE ABSOLUTE 0.2 Th/cmm (0.1-0.4); HEMATOCRIT 29.6 % (41.0-60); LYMPHOCYTE ABSOLUTE 1.2 Th/cmm (1.5-3.0); MEAN CELL VOLUME 94.5 fl (80-99); MEAN CORPUSCULAR HGB CONC 33.9 pg (28.0-36.0); MEAN PLATELET VOLUME 7.7 fl; NEUTROPHILE ABSOLUTE 4.2 Th/cmm (1.8-8.0); PLATELET COUNT 261 Th/cmm (150-400); RED BLOOD COUNT 3.13 Mil/cmm (3.80-5.80); RED CELL DISTRIBUTION WIDTH 12.8 % (11.5-20.0); WHITE BLOOD COUNT 6.6 Th/cmm (4.8-10.8)
[2018-07-03 07:11] LABS: ANION GAP 10.9 (7.0-16.0); BUN - UREA NITROGEN 17 mg/dL (7-25); CALCIUM SERUM 9.3 mg/dL (8.6-10.3); CHLORIDE 110 mEq/L (98-107); CREATININE - SERUM 1.5 mg/dL (0.7-1.3); GFR AFRICAN-AMERICAN > 60.0 ml/min (>90); GFR NON AFRICAN-AMERICAN 49.9 ml/min; GLUCOSE 84 mg/dL (70-105); POTASSIUM SERUM 4.9 mEq/L (3.5-5.1); SODIUM SERUM 142 mEq/L (136-145)
--- NOTE | 2018-07-03 11:03 | Diagnostic Imaging Report ---
Renal ultrasound HISTORY: Mass. COMPARISON: CT abdomen and pelvis on 06/29/2018 Technique: Sonography of the kidneys and urinary bladder was performed in multiple planes. FINDINGS: The right kidney measures 11.9 x 5.7 cm demonstrating a superior pole cyst measuring 1.3 cm. There is fullness of the right renal collecting system and what appears to be mild prominence of the proximal right ureter. The left kidney measures 10.9 x 6.9 x 5.4 cm demonstrating a solid mass along the mid to lower pole measuring 4.7 x 4.7 cm. Superior pole left renal cyst is noted measuring 1.2 cm. No hydronephrosis. No evidence of elevated postvoid residual bladder volumes. The prostate gland is mildly prominent measuring 4.3 x 4.2 cm. IMPRESSION: Solid-appearing left renal mass measuring 4.7 x 4.7 cm. Neoplastic processes such as renal cell carcinoma cannot be excluded. Recommend further assessment with CT, dedicated renal mass protocol. Small bilateral renal cysts. Fullness of right renal collecting system and proximal right ureter noted. Mildly prominent prostate gland. Please correlate with clinical findings.
--- NOTE | 2018-07-03 14:42 | Internal Medicine Prog Note ---
Internal Medicine Subjective - Subjective Service Date: 07/03/18 Patient is:: awake, verbal, interactive, in bed Patient Complaints of:: congestion, pain with urination Per staff patient has:: no adverse event, no episodes of fall, poor appetite, tolerating meds Internal Medicine Objective - Results Result Diagrams: 07/03/18 06:22 07/03/18 06:22 Recent Labs: Laboratory Last Values WBC 6.6 Th/cmm (4.8-10.8) 07/03/18 06:22 RBC 3.13 Mil/cmm (3.80-5.80) L 07/03/18 06:22 Hgb 10.0 gm/dL (12-16) L 07/03/18 06:22 Hct 29.6 % (41.0-60) L 07/03/18 06:22 MCV 94.5 fl (80-99) 07/03/18 06:22 MCH 32.0 pg (27.0-31.0) H 07/03/18 06:22 MCHC Differential 33.9 pg (28.0-36.0) 07/03/18 06:22 RDW 12.8 % (11.5-20.0) 07/03/18 06:22 Plt Count 261 Th/cmm (150-400) 07/03/18 06:22 MPV 7.7 fl 07/03/18 06:22 Add Manual Diff YES 07/01/18 06:45 Neutrophils % 64.8 % (40.0-80.0) 07/03/18 06:22 Band Neutrophils % 2 % (0-10) 07/01/18 06:45 Lymphocytes % 17.5 % (20.0-50.0) L 07/03/18 06:22 Monocytes % 14.6 % (2.0-10.0) H 07/03/18 06:22 Eosinophils % 2.4 % (0.0-5.0) 07/03/18 06:22 Basophils % 0.7 % (0.0-2.0) 07/03/18 06:22 Neutrophils (Manual) 71 % (40-80) 07/01/18 06:45 Lymphocytes 12 % (20-50) L 07/01/18 06:45 Monocytes 13 % (2-10) H 07/01/18 06:45 Eosinophils 2 % (0-5) 07/01/18 06:45 Basophils 0 % (0-3) 07/01/18 06:45 PT 9.8 SECONDS (9.5-11.5) 06/29/18 11:45 INR 0.94 (0.5-1.4) 06/29/18 11:45 Sodium 142 mEq/L (136-145) 07/03/18 06:22 Potassium 4.9 mEq/L (3.5-5.1) 07/03/18 06:22 Chloride 110 mEq/L (98-107) H 07/03/18 06:22 Carbon Dioxide 26.0 mEq/L (21.0-31.0) 07/03/18 06:22 Anion Gap 10.9 (7.0-16.0) 07/03/18 06:22 BUN 17 mg/dL (7-25) 07/03/18 06:22 Creatinine 1.5 mg/dL (0.7-1.3) H 07/03/18 06:22 Est GFR ( Amer) > 60.0 ml/min (>90) 07/03/18 06:22 Est GFR (Non-Af Amer) 49.9 ml/min 07/03/18 06:22 BUN/Creatinine Ratio 11.3 07/03/18 06:22 Glucose 84 mg/dL (70-105) 07/03/18 06:22 Calcium 9.3 mg/dL (8.6-10.3) 07/03/18 06:22 Magnesium 1.9 mg/dL (1.9-2.7) 07/01/18 06:45 Total Bilirubin 0.4 mg/dL (0.3-1.0) 07/01/18 06:45 AST 16 U/L (13-39) 07/01/18 06:45 ALT 8 U/L (7-52) 07/01/18 06:45 Alkaline Phosphatase 54 U/L (34-104) 07/01/18 06:45 Creatine Kinase 159 U/L (30-223) 06/29/18 11:45 Troponin I 0.01 ng/mL (0.01-0.05) 06/29/18 11:45 B-Natriuretic Peptide 163.0 pg/mL (5.0-100.0) H 07/01/18 06:45 Total Protein 6.4 gm/dL (6.0-8.3) 07/01/18 06:45 Albumin 3.2 gm/dL (4.2-5.5) L 07/01/18 06:45 Globulin 3.2 gm/dL 07/01/18 06:45 Albumin/Globulin Ratio 1.0 (1.0-1.8) 07/01/18 06:45 Triglycerides 81 mg/dL (<150) 06/29/18 11:45 Cholesterol 192 mg/dL (<200) 06/29/18 11:45 LDL Cholesterol Direct 129 mg/dL (75-193) 06/29/18 11:45 HDL Cholesterol 56 mg/dL (23-92) 06/29/18 11:45 Amylase 138 U/L (29-103) H 06/29/18 11:45 Lipase 97 U/L (11-82) H 06/29/18 11:45 Urine Source CLEAN C 06/29/18 12:58 Urine Color YELLOW 06/29/18 12:58 Urine Clarity SLIGHTLY HAZY (CLEAR) 06/29/18 12:58 Urine pH 6.5 (4.6 - 8.0) 06/29/18 12:58 Ur Specific [place] 1.015 (1.005-1.030) 06/29/18 12:58 Urine Protein 100 mg/dL (NEGATIVE) H 06/29/18 12:58 Urine Glucose (UA) NEGATIVE mg/dL (NEGATIVE) 06/29/18 12:58 Urine Ketones NEGATIVE mg/dL (NEGATIVE) 06/29/18 12:58 Urine Blood LARGE (NEGATIVE) H 06/29/18 12:58 Urine Nitrate NEGATIVE (NEGATIVE) 06/29/18 12:58 Urine Bilirubin NEGATIVE (NEGATIVE) 06/29/18 12:58 Urine Urobilinogen 0.2 E.U./dL (0.2 - 1.0) 06/29/18 12:58 Ur Leukocyte Esterase NEGATIVE (NEGATIVE) 06/29/18 12:58 Urine RBC 2-5 /hpf (0-5) H 06/29/18 12:58 Urine WBC 0-2 /hpf (0-5) 06/29/18 12:58 Ur Epithelial Cells OCCASIONAL /lpf (FEW) 06/29/18 12:58 Urine Bacteria NONE SEEN /hpf (NONE SEEN) 06/29/18 12:58 Valproic Acid 47.3 ug/mL (50.0-100.0) L 06/29/18 11:45 - Physical Exam Vitals and I&O: Vital Signs Temp 97.6 F 07/03/18 12:00 Pulse 69 07/03/18 12:00 Resp 18 07/03/18 12:00 BP 117/66 07/03/18 12:00 Pulse Ox 98 07/03/18 12:00 Intake & Output 07/02/18 07/03/18 07/03/18 18:59 06:59 18:59 Intake Total 1200 600 Output Total 1600 Balance 1200 -1000 Weight (lbs) 149 lb 4.8 oz 149 lb Intake: Oral 1200 600 Output: Urine 1600 Other: # Voids 4 # Bowel Movements 1 0 Stool Characteristics Hard Weight Source Bedscale Bedscale Active Medications: Current Medications Acetaminophen (Tylenol) 650 mg PO Q4H PRN PRN Reason: Pain Or Fever above 101 Stop: 08/28/18 14:32 Last Admin: 07/01/18 21:00 Dose: 650 mg Al Hydrox/Mg Hydrox/Simethicone (Maalox) 30 ml PO Q6H PRN PRN Reason: Dyspepsia Stop: 08/28/18 14:32 Albuterol Sulfate (Albuterol 2.5mg/3ml Neb Ud) 2.5 mg HHN Q2HRT PRN PRN Reason: Shortness of Breath or Wheeze Stop: 08/28/18 14:32 Amlodipine Besylate (Norvasc) 10 mg PO DAILY [facility] Stop: 08/31/18 16:44 Last Admin: 07/03/18 08:17 Dose: 10 mg Aripiprazole (Abilify) 15 mg PO HS [facility]; Protocol Stop: 08/28/18 20:59 Last Admin: 07/02/18 21:47 Dose: 15 mg Divalproex Sodium (Depakote Dr) 1,000 mg PO 1300 [facility]; Protocol Stop: 08/29/18 12:59 Last Admin: 07/03/18 12:29 Dose: 1,000 mg Escitalopram Oxalate (Lexapro) 10 mg PO DAILY [facility]; Protocol Stop: 08/29/18 08:59 Last Admin: 07/03/18 08:18 Dose: 10 mg Dextrose/Sodium Chloride (D5-0.9%Ns) 1,000 mls @ 100 mls/hr IV .Q10H [facility] Stop: 08/28/18 14:44 Last Admin: 07/03/18 03:07 Dose: 100 mls/hr Ipratropium [place] (Atrovent Neb 0.5mg/2.5ml) 0.5 mg IH Q2HRT PRN PRN Reason: Shortness of Breath or Wheeze Stop: 08/28/18 14:32 Lisinopril (Zestril) 20 mg PO DAILY [facility] Stop: 08/31/18 16:44 Last Admin: 07/03/18 08:18 Dose: 20 mg Ondansetron HCl (Zofran) 4 mg IV Q8H PRN PRN Reason: Nausea / Vomiting Stop: 08/28/18 14:32 Trazodone HCl (Desyrel) 50 mg PO HS [facility]; Protocol Stop: 08/28/18 20:59 Last Admin: 07/02/18 21:47 Dose: 50 mg Zolpidem Tartrate (Ambien) 10 mg PO HS PRN PRN Reason: Insomnia Stop: 08/28/18 14:32 General: weak, appears older HEENT: NC/AT, PERRLA, thinning hair, poor dentition Neck: Supple, No JVD, No LAD Lungs: CTAB Cardiovascular: RRR, Normal S1, Normal S2, without murmur Abdomen: soft, non-tender, globular, positive bowel sound Extremities: excoriation, contracture Neurological: no change, disorganized Internal Medicine Assmt/Plan - Assessment Assessment: SESSMENT AND PLAN: Acute back pain, new diagnosis left kidney mass on CT, renal insufficiency, COPD, low back pain, psych disorder, leukocytosis, elevated lipase, hematuria. - Plan Plan: cont iv abx kidney bx tomorrow in am cont current plan of care Nutritional Asmnt/Malnutr-PDOC - Dietary Evaluation Malnutrition Findings (Please click <Entered> for more info): Nutritional Asmnt/Malnutrition Start: 07/01/18 14: 23 Text: Status: Complete Freq: Protocol: Document 07/01/18 14:27 [email or web address] (Rec: 07/01/18 14:37 [email or web address] VI) Nutritional Asmnt/Malnutrition Patient General Information Nutritional Screening Moderate Risk Diagnosis kidney mass, left lower back pain Pertinent Medical Hx/Surgical Hx COPD, chronic low back pain, herniated disk, psych disorder Subjective Information Pt was in bed, alert, at time of visit. Educated pt on renal diet. Pt requested 2 coffees for breakfast and hot tea for dinner. PO intake is 75-100% per EMR. Current Diet Order/ Nutrition Support renal Patient / S.O Can Pertinent Medications D5-0.9%ns, zofran Pertinent Labs / cl 108, cr 1.7, alb 3.2 1/2 BUN 27, cr 1.8, alb 3.9 Nutritional Hx/Data Height 5 ft 8 in Height (Calculated Centimeters) 172.7 Current Weight (lbs) 136 lb Weight (Calculated Kilograms) 61.7 Weight (Calculated Grams) 83280.6 [place] Body Weight 154 Body Mass Index (BMI) 20.7 Weight Status Approriate GI Symptoms GI Symptoms None Last BM not indicated Difficult in: None Food Allergies Yes: shellfish derived Usual diet at home Pt has been following renal diet d/t renal dysfunction, understanding protein restriction. Skin Integrity/Comment: matthew carter 21 Current %PO Good (75-100%) Estimated Nutritional Goals BEE in Kcals: Using Current wt Calories/Kcals/Kg 25-30 Kcals Calculated 8998-1883 Protein: Using Current wt Protein g/k.75-0.8 Protein Calculated 45-49 Fluid: ml 8093-2057 (1ml/kcal) Nutritional Problem 1. Problem Problem altered nutrition related lab values Etiology renal dysfunction Signs/Symptoms: BUN 22-27, Cr 1.7-1.8 Malnutrition Alert Is there a minimum of two criteria No selected? Query Text:Check all the applicable criteria. A minimum of two criteria are recommended for diagnosis of either severe or non-severe malnutrition. Malnutrition Related to Morbid Obesity Malnutrition related to morbid obesity No Intervention/Recommendation Comments 1. Continue with renal diet as ordered. 2. Monitor PO intake, wt, labs and skin integrity 3. F/U as moderate risk in 3-5 days Expected Outcomes/Goals Expected Outcomes/Goals Goal: PO intake to meet at least 75% of nutritional needs and improved labs. Reviewed by Vijaya Tinajero RD
--- NOTE | 2018-07-03 22:24 | Progress Notes ---
DATE: 07/03/2018 HOSPITAL COURSE: The patient has occasional flank pain, occasional dysuria, some congestion, but no significant other complaints. Renal ultrasound and bladder ultrasound were completed and he is now awaiting biopsy percutaneously. PHYSICAL EXAMINATION: VITAL SIGNS: Temperature 99.4, heart rate 75, blood pressure 145/75 and better controlled than upon admission. ABDOMEN: Soft, nondistended. Left flank tender to percussion. EXTREMITIES: No edema. GENITALIA: Unremarkable. HEART AND LUNG: Sounds normal. No foreign sounds. LABORATORY DATA: Renal ultrasound shows a 4.7 cm solid lesion in the left kidney suspicious for malignancy. The bladder ultrasound showed very small amount of postvoid residual, ruling out bladder outlet obstruction. His white count is 6.6, hemoglobin 10.0, and creatinine improved to 1.5 from a high of 1.8. IMPRESSION: 1. Left renal mass. Await biopsy. 2. Renal insufficiency, improved. 3. Hypertension, better controlled. 4. Bipolar disorder. No change. 5. History of chronic obstructive pulmonary disease and peripheral vascular disease are chronic conditions. JOB# [id number]
[2018-07-04] MEDS: D5-0.9%NS 1,000 ML IV SCH ×2 (04:43→21:09)
[2018-07-04 05:08] LABS: % BASOPHILS 0.8 % (0.0-2.0); % EOSINOPHILS 3.4 % (0.0-5.0); % LYMPHOCYTES 22.2 % (20.0-50.0); % MONOCYTES 14.9 % (2.0-10.0); % NEUTROPHILS 58.7 % (40.0-80.0); EOSINOPHILE ABSOLUTE 0.2 Th/cmm (0.1-0.4); HEMATOCRIT 30.1 % (41.0-60); HEMOGLOBIN 10.2 gm/dL (12-16); LYMPHOCYTE ABSOLUTE 1.4 Th/cmm (1.5-3.0); MEAN CELL VOLUME 93.7 fl (80-99); MEAN CORPUSCULAR HEMOGLOBIN 31.8 pg (27.0-31.0); MEAN PLATELET VOLUME 7.7 fl; MONOCYTE ABSOLUTE 0.9 Th/cmm (0.3-1.0); NEUTROPHILE ABSOLUTE 3.6 Th/cmm (1.8-8.0); PLATELET COUNT 260 Th/cmm (150-400); RED BLOOD COUNT 3.21 Mil/cmm (3.80-5.80); RED CELL DISTRIBUTION WIDTH 12.4 % (11.5-20.0); WHITE BLOOD COUNT 6.1 Th/cmm (4.8-10.8)
[2018-07-04 05:57] LABS: CALCIUM SERUM 9.2 mg/dL (8.6-10.3); CREATININE - SERUM 1.6 mg/dL (0.7-1.3); GFR AFRICAN-AMERICAN 56.1 ml/min (>90); GFR NON AFRICAN-AMERICAN 46.3 ml/min; POTASSIUM SERUM 4.7 mEq/L (3.5-5.1)
[2018-07-04 06:14] LABS: ANION GAP 11.8 (7.0-16.0); CARBON DIOXIDE 23.9 mEq/L (21.0-31.0)
--- NOTE | 2018-07-04 09:59 | General Progress Note ---
Subjective - Review of Systems Service Date: 07/04/18 Subjective: left flank pain ambulatory Objective - Results Result Diagrams: 07/04/18 04:30 07/04/18 04:30 Recent Labs: Laboratory Last Values WBC 6.1 Th/cmm (4.8-10.8) 07/04/18 04:30 RBC 3.21 Mil/cmm (3.80-5.80) L 07/04/18 04:30 Hgb 10.2 gm/dL (12-16) L 07/04/18 04:30 Hct 30.1 % (41.0-60) L 07/04/18 04:30 MCV 93.7 fl (80-99) 07/04/18 04:30 MCH 31.8 pg (27.0-31.0) H 07/04/18 04:30 MCHC Differential 34.0 pg (28.0-36.0) 07/04/18 04:30 RDW 12.4 % (11.5-20.0) 07/04/18 04:30 Plt Count 260 Th/cmm (150-400) 07/04/18 04:30 MPV 7.7 fl 07/04/18 04:30 Add Manual Diff YES 07/01/18 06:45 Neutrophils % 58.7 % (40.0-80.0) 07/04/18 04:30 Band Neutrophils % 2 % (0-10) 07/01/18 06:45 Lymphocytes % 22.2 % (20.0-50.0) 07/04/18 04:30 Monocytes % 14.9 % (2.0-10.0) H 07/04/18 04:30 Eosinophils % 3.4 % (0.0-5.0) 07/04/18 04:30 Basophils % 0.8 % (0.0-2.0) 07/04/18 04:30 Neutrophils (Manual) 71 % (40-80) 07/01/18 06:45 Lymphocytes 12 % (20-50) L 07/01/18 06:45 Monocytes 13 % (2-10) H 07/01/18 06:45 Eosinophils 2 % (0-5) 07/01/18 06:45 Basophils 0 % (0-3) 07/01/18 06:45 PT 9.8 SECONDS (9.5-11.5) 06/29/18 11:45 INR 0.94 (0.5-1.4) 06/29/18 11:45 Sodium 142 mEq/L (136-145) 07/04/18 04:30 Potassium 4.7 mEq/L (3.5-5.1) 07/04/18 04:30 Chloride 111 mEq/L (98-107) H 07/04/18 04:30 Carbon Dioxide 23.9 mEq/L (21.0-31.0) 07/04/18 04:30 Anion Gap 11.8 (7.0-16.0) 07/04/18 04:30 BUN 19 mg/dL (7-25) 07/04/18 04:30 Creatinine 1.6 mg/dL (0.7-1.3) H 07/04/18 04:30 Est GFR ( Amer) 56.1 ml/min (>90) 07/04/18 04:30 Est GFR (Non-Af Amer) 46.3 ml/min 07/04/18 04:30 BUN/Creatinine Ratio 11.9 07/04/18 04:30 Glucose 85 mg/dL (70-105) 07/04/18 04:30 Calcium 9.2 mg/dL (8.6-10.3) 07/04/18 04:30 Magnesium 1.9 mg/dL (1.9-2.7) 07/01/18 06:45 Total Bilirubin 0.4 mg/dL (0.3-1.0) 07/01/18 06:45 AST 16 U/L (13-39) 07/01/18 06:45 ALT 8 U/L (7-52) 07/01/18 06:45 Alkaline Phosphatase 54 U/L (34-104) 07/01/18 06:45 Creatine Kinase 159 U/L (30-223) 06/29/18 11:45 Troponin I 0.01 ng/mL (0.01-0.05) 06/29/18 11:45 B-Natriuretic Peptide 163.0 pg/mL (5.0-100.0) H 07/01/18 06:45 Total Protein 6.4 gm/dL (6.0-8.3) 07/01/18 06:45 Albumin 3.2 gm/dL (4.2-5.5) L 07/01/18 06:45 Globulin 3.2 gm/dL 07/01/18 06:45 Albumin/Globulin Ratio 1.0 (1.0-1.8) 07/01/18 06:45 Triglycerides 81 mg/dL (<150) 06/29/18 11:45 Cholesterol 192 mg/dL (<200) 06/29/18 11:45 LDL Cholesterol Direct 129 mg/dL (75-193) 06/29/18 11:45 HDL Cholesterol 56 mg/dL (23-92) 06/29/18 11:45 Amylase 138 U/L (29-103) H 06/29/18 11:45 Lipase 97 U/L (11-82) H 06/29/18 11:45 Urine Source CLEAN C 06/29/18 12:58 Urine Color YELLOW 06/29/18 12:58 Urine Clarity SLIGHTLY HAZY (CLEAR) 06/29/18 12:58 Urine pH 6.5 (4.6 - 8.0) 06/29/18 12:58 Ur Specific [place] 1.015 (1.005-1.030) 06/29/18 12:58 Urine Protein 100 mg/dL (NEGATIVE) H 06/29/18 12:58 Urine Glucose (UA) NEGATIVE mg/dL (NEGATIVE) 06/29/18 12:58 Urine Ketones NEGATIVE mg/dL (NEGATIVE) 06/29/18 12:58 Urine Blood LARGE (NEGATIVE) H 06/29/18 12:58 Urine Nitrate NEGATIVE (NEGATIVE) 06/29/18 12:58 Urine Bilirubin NEGATIVE (NEGATIVE) 06/29/18 12:58 Urine Urobilinogen 0.2 E.U./dL (0.2 - 1.0) 06/29/18 12:58 Ur Leukocyte Esterase NEGATIVE (NEGATIVE) 06/29/18 12:58 Urine RBC 2-5 /hpf (0-5) H 06/29/18 12:58 Urine WBC 0-2 /hpf (0-5) 06/29/18 12:58 Ur Epithelial Cells OCCASIONAL /lpf (FEW) 06/29/18 12:58 Urine Bacteria NONE SEEN /hpf (NONE SEEN) 06/29/18 12:58 Valproic Acid 47.3 ug/mL (50.0-100.0) L 06/29/18 11:45 - Physical Exam Vitals and I&O: Vital Signs Temp 97.4 F 07/04/18 08:47 Pulse 64 07/04/18 08:49 Resp 18 07/04/18 08:47 BP 153/80 07/04/18 08:49 Pulse Ox 97 07/04/18 08:47 Intake & Output 07/03/18 07/04/18 07/04/18 18:59 06:59 18:59 Intake Total 1340 600 Output Total 2200 Balance 1340 -1600 Weight (lbs) 66.587 kg 66.224 kg Intake: Intake, IV Amount 1000 D5-0.9%Ns 1,000 ml @ 100 1000 mls/hr IV .Q10H [facility] Rx#: [id number] Oral 340 600 Output: Urine 2200 Other: # Voids 3 2 # Bowel Movements 1 0 Stool Characteristics Hard Hard Weight Source Bedscale Bedscale Active Medications: Current Medications Acetaminophen (Tylenol) 650 mg PO Q4H PRN PRN Reason: Pain Or Fever above 101 Stop: 08/28/18 14:32 Last Admin: 07/03/18 21:17 Dose: 650 mg Al Hydrox/Mg Hydrox/Simethicone (Maalox) 30 ml PO Q6H PRN PRN Reason: Dyspepsia Stop: 08/28/18 14:32 Albuterol Sulfate (Albuterol 2.5mg/3ml Neb Ud) 2.5 mg HHN Q2HRT PRN PRN Reason: Shortness of Breath or Wheeze Stop: 08/28/18 14:32 Amlodipine Besylate (Norvasc) 10 mg PO DAILY [facility] Stop: 08/31/18 16:44 Last Admin: 07/04/18 08:49 Dose: 10 mg Aripiprazole (Abilify) 15 mg PO HS [facility]; Protocol Stop: 08/28/18 20:59 Last Admin: 07/03/18 20:24 Dose: 15 mg Divalproex Sodium (Depakote Dr) 1,000 mg PO 1300 [facility]; Protocol Stop: 08/29/18 12:59 Last Admin: 07/03/18 12:29 Dose: 1,000 mg Escitalopram Oxalate (Lexapro) 10 mg PO DAILY [facility]; Protocol Stop: 08/29/18 08:59 Last Admin: 07/04/18 08:49 Dose: 10 mg Dextrose/Sodium Chloride (D5-0.9%Ns) 1,000 mls @ 100 mls/hr IV .Q10H [facility] Stop: 08/28/18 14:44 Last Admin: 07/04/18 04:43 Dose: 100 mls/hr Ipratropium [place] (Atrovent Neb 0.5mg/2.5ml) 0.5 mg IH Q2HRT PRN PRN Reason: Shortness of Breath or Wheeze Stop: 08/28/18 14:32 Lisinopril (Zestril) 20 mg PO DAILY [facility] Stop: 08/31/18 16:44 Last Admin: 07/04/18 08:49 Dose: 20 mg Ondansetron HCl (Zofran) 4 mg IV Q8H PRN PRN Reason: Nausea / Vomiting Stop: 08/28/18 14:32 Trazodone HCl (Desyrel) 50 mg PO HS [facility]; Protocol Stop: 08/28/18 20:59 Last Admin: 07/03/18 20:24 Dose: 50 mg Zolpidem Tartrate (Ambien) 10 mg PO HS PRN PRN Reason: Insomnia Stop: 08/28/18 14:32 General: Alert HEENT: Atraumatic Neck: Supple Cardiovascular: Regular rate Lungs: Clear to auscultation Abdomen: Soft Assessment/Plan - Assessment Assessment: Left kidney mass exceeding 4 cm, which is not cyst. The scan was done without contrast because of the renal functions. This mass is suspicious of renal cell carcinoma and will require evaluation by urologist for possible left partial or total nephrectomy. 07/04/18: awaiting left kidney mass biopsy. Nutritional Asmnt/Malnutr-PDOC - Dietary Evaluation Malnutrition Findings (Please click <Entered> for more info): Nutritional Asmnt/Malnutrition Start: 07/01/18 14: 23 Text: Status: Complete Freq: Protocol: Document 07/01/18 14:27 [email or web address] (Rec: 07/01/18 14:37 [email or web address] VI) Nutritional Asmnt/Malnutrition Patient General Information Nutritional Screening Moderate Risk Diagnosis kidney mass, left lower back pain Pertinent Medical Hx/Surgical Hx COPD, chronic low back pain, herniated disk, psych disorder Subjective Information Pt was in bed, alert, at time of visit. Educated pt on renal diet. Pt requested 2 coffees for breakfast and hot tea for dinner. PO intake is 75-100% per EMR. Current Diet Order/ Nutrition Support renal Patient / S.O Can Pertinent Medications D5-0.9%ns, zofran Pertinent Labs / cl 108, cr 1.7, alb 3.2 1/2 BUN 27, cr 1.8, alb 3.9 Nutritional Hx/Data Height 1.73 m Height (Calculated Centimeters) 172.7 Current Weight (lbs) 61.689 kg Weight (Calculated Kilograms) 61.7 Weight (Calculated Grams) 77952.6 [place] Body Weight 154 Body Mass Index (BMI) 20.7 Weight Status Approriate GI Symptoms GI Symptoms None Last BM not indicated Difficult in: None Food Allergies Yes: shellfish derived Usual diet at home Pt has been following renal diet d/t renal dysfunction, understanding protein restriction. Skin Integrity/Comment: matthew carter 21 Current %PO Good (75-100%) Estimated Nutritional Goals BEE in Kcals: Using Current wt Calories/Kcals/Kg 25-30 Kcals Calculated 2380-8872 Protein: Using Current wt Protein g/k.75-0.8 Protein Calculated 45-49 Fluid: ml 9617-0177 (1ml/kcal) Nutritional Problem 1. Problem Problem altered nutrition related lab values Etiology renal dysfunction Signs/Symptoms: BUN 22-27, Cr 1.7-1.8 Malnutrition Alert Is there a minimum of two criteria No selected? Query Text:Check all the applicable criteria. A minimum of two criteria are recommended for diagnosis of either severe or non-severe malnutrition. Malnutrition Related to Morbid Obesity Malnutrition related to morbid obesity No Intervention/Recommendation Comments 1. Continue with renal diet as ordered. 2. Monitor PO intake, wt, labs and skin integrity 3. F/U as moderate risk in 3-5 days Expected Outcomes/Goals Expected Outcomes/Goals Goal: PO intake to meet at least 75% of nutritional needs and improved labs. Reviewed by Vijaya Tinajero RD
--- NOTE | 2018-07-04 12:42 | Internal Medicine Prog Note ---
Internal Medicine Subjective - Subjective Patient seen and examined:: with staff, chart reviewed Patient is:: awake, verbal, interactive, in bed Patient Complaints of:: congestion, pain with urination Per staff patient has:: no adverse event, no episodes of fall, poor appetite, tolerating meds Internal Medicine Objective - Results Result Diagrams: 07/04/18 04:30 07/04/18 04:30 Recent Labs: Laboratory Last Values WBC 6.1 Th/cmm (4.8-10.8) 07/04/18 04:30 RBC 3.21 Mil/cmm (3.80-5.80) L 07/04/18 04:30 Hgb 10.2 gm/dL (12-16) L 07/04/18 04:30 Hct 30.1 % (41.0-60) L 07/04/18 04:30 MCV 93.7 fl (80-99) 07/04/18 04:30 MCH 31.8 pg (27.0-31.0) H 07/04/18 04:30 MCHC Differential 34.0 pg (28.0-36.0) 07/04/18 04:30 RDW 12.4 % (11.5-20.0) 07/04/18 04:30 Plt Count 260 Th/cmm (150-400) 07/04/18 04:30 MPV 7.7 fl 07/04/18 04:30 Add Manual Diff YES 07/01/18 06:45 Neutrophils % 58.7 % (40.0-80.0) 07/04/18 04:30 Band Neutrophils % 2 % (0-10) 07/01/18 06:45 Lymphocytes % 22.2 % (20.0-50.0) 07/04/18 04:30 Monocytes % 14.9 % (2.0-10.0) H 07/04/18 04:30 Eosinophils % 3.4 % (0.0-5.0) 07/04/18 04:30 Basophils % 0.8 % (0.0-2.0) 07/04/18 04:30 Neutrophils (Manual) 71 % (40-80) 07/01/18 06:45 Lymphocytes 12 % (20-50) L 07/01/18 06:45 Monocytes 13 % (2-10) H 07/01/18 06:45 Eosinophils 2 % (0-5) 07/01/18 06:45 Basophils 0 % (0-3) 07/01/18 06:45 PT 9.8 SECONDS (9.5-11.5) 06/29/18 11:45 INR 0.94 (0.5-1.4) 06/29/18 11:45 Sodium 142 mEq/L (136-145) 07/04/18 04:30 Potassium 4.7 mEq/L (3.5-5.1) 07/04/18 04:30 Chloride 111 mEq/L (98-107) H 07/04/18 04:30 Carbon Dioxide 23.9 mEq/L (21.0-31.0) 07/04/18 04:30 Anion Gap 11.8 (7.0-16.0) 07/04/18 04:30 BUN 19 mg/dL (7-25) 07/04/18 04:30 Creatinine 1.6 mg/dL (0.7-1.3) H 07/04/18 04:30 Est GFR ( Amer) 56.1 ml/min (>90) 07/04/18 04:30 Est GFR (Non-Af Amer) 46.3 ml/min 07/04/18 04:30 BUN/Creatinine Ratio 11.9 07/04/18 04:30 Glucose 85 mg/dL (70-105) 07/04/18 04:30 Calcium 9.2 mg/dL (8.6-10.3) 07/04/18 04:30 Magnesium 1.9 mg/dL (1.9-2.7) 07/01/18 06:45 Total Bilirubin 0.4 mg/dL (0.3-1.0) 07/01/18 06:45 AST 16 U/L (13-39) 07/01/18 06:45 ALT 8 U/L (7-52) 07/01/18 06:45 Alkaline Phosphatase 54 U/L (34-104) 07/01/18 06:45 Creatine Kinase 159 U/L (30-223) 06/29/18 11:45 Troponin I 0.01 ng/mL (0.01-0.05) 06/29/18 11:45 B-Natriuretic Peptide 163.0 pg/mL (5.0-100.0) H 07/01/18 06:45 Total Protein 6.4 gm/dL (6.0-8.3) 07/01/18 06:45 Albumin 3.2 gm/dL (4.2-5.5) L 07/01/18 06:45 Globulin 3.2 gm/dL 07/01/18 06:45 Albumin/Globulin Ratio 1.0 (1.0-1.8) 07/01/18 06:45 Triglycerides 81 mg/dL (<150) 06/29/18 11:45 Cholesterol 192 mg/dL (<200) 06/29/18 11:45 LDL Cholesterol Direct 129 mg/dL (75-193) 06/29/18 11:45 HDL Cholesterol 56 mg/dL (23-92) 06/29/18 11:45 Amylase 138 U/L (29-103) H 06/29/18 11:45 Lipase 97 U/L (11-82) H 06/29/18 11:45 Urine Source CLEAN C 06/29/18 12:58 Urine Color YELLOW 06/29/18 12:58 Urine Clarity SLIGHTLY HAZY (CLEAR) 06/29/18 12:58 Urine pH 6.5 (4.6 - 8.0) 06/29/18 12:58 Ur Specific [place] 1.015 (1.005-1.030) 06/29/18 12:58 Urine Protein 100 mg/dL (NEGATIVE) H 06/29/18 12:58 Urine Glucose (UA) NEGATIVE mg/dL (NEGATIVE) 06/29/18 12:58 Urine Ketones NEGATIVE mg/dL (NEGATIVE) 06/29/18 12:58 Urine Blood LARGE (NEGATIVE) H 06/29/18 12:58 Urine Nitrate NEGATIVE (NEGATIVE) 06/29/18 12:58 Urine Bilirubin NEGATIVE (NEGATIVE) 06/29/18 12:58 Urine Urobilinogen 0.2 E.U./dL (0.2 - 1.0) 06/29/18 12:58 Ur Leukocyte Esterase NEGATIVE (NEGATIVE) 06/29/18 12:58 Urine RBC 2-5 /hpf (0-5) H 06/29/18 12:58 Urine WBC 0-2 /hpf (0-5) 06/29/18 12:58 Ur Epithelial Cells OCCASIONAL /lpf (FEW) 06/29/18 12:58 Urine Bacteria NONE SEEN /hpf (NONE SEEN) 06/29/18 12:58 Valproic Acid 47.3 ug/mL (50.0-100.0) L 06/29/18 11:45 - Physical Exam Vitals and I&O: Vital Signs Temp 97.1 F 07/04/18 11:38 Pulse 71 07/04/18 11:38 Resp 18 07/04/18 12:00 BP 136/72 07/04/18 11:38 Pulse Ox 96 07/04/18 11:38 Intake & Output 07/03/18 07/04/18 07/04/18 18:59 06:59 18:59 Intake Total 1340 600 Output Total 2200 Balance 1340 -1600 Weight (lbs) 66.587 kg 66.224 kg Intake: Intake, IV Amount 1000 D5-0.9%Ns 1,000 ml @ 100 1000 mls/hr IV .Q10H [facility] Rx#: [id number] Oral 340 600 Output: Urine 2200 Other: # Voids 3 2 # Bowel Movements 1 0 Stool Characteristics Hard Hard Weight Source Bedscale Bedscale Active Medications: Current Medications Acetaminophen (Tylenol) 650 mg PO Q4H PRN PRN Reason: Pain Or Fever above 101 Stop: 08/28/18 14:32 Last Admin: 07/03/18 21:17 Dose: 650 mg Al Hydrox/Mg Hydrox/Simethicone (Maalox) 30 ml PO Q6H PRN PRN Reason: Dyspepsia Stop: 08/28/18 14:32 Albuterol Sulfate (Albuterol 2.5mg/3ml Neb Ud) 2.5 mg HHN Q2HRT PRN PRN Reason: Shortness of Breath or Wheeze Stop: 08/28/18 14:32 Amlodipine Besylate (Norvasc) 10 mg PO DAILY [facility] Stop: 08/31/18 16:44 Last Admin: 07/04/18 08:49 Dose: 10 mg Aripiprazole (Abilify) 15 mg PO HS [facility]; Protocol Stop: 08/28/18 20:59 Last Admin: 07/03/18 20:24 Dose: 15 mg Divalproex Sodium (Depakote Dr) 1,000 mg PO 1300 [facility]; Protocol Stop: 08/29/18 12:59 Last Admin: 07/04/18 12:12 Dose: 1,000 mg Escitalopram Oxalate (Lexapro) 10 mg PO DAILY [facility]; Protocol Stop: 08/29/18 08:59 Last Admin: 07/04/18 08:49 Dose: 10 mg Dextrose/Sodium Chloride (D5-0.9%Ns) 1,000 mls @ 100 mls/hr IV .Q10H [facility] Stop: 08/28/18 14:44 Last Admin: 07/04/18 04:43 Dose: 100 mls/hr Ipratropium [place] (Atrovent Neb 0.5mg/2.5ml) 0.5 mg IH Q2HRT PRN PRN Reason: Shortness of Breath or Wheeze Stop: 08/28/18 14:32 Lisinopril (Zestril) 20 mg PO DAILY [facility] Stop: 08/31/18 16:44 Last Admin: 07/04/18 08:49 Dose: 20 mg Ondansetron HCl (Zofran) 4 mg IV Q8H PRN PRN Reason: Nausea / Vomiting Stop: 08/28/18 14:32 Trazodone HCl (Desyrel) 50 mg PO HS [facility]; Protocol Stop: 08/28/18 20:59 Last Admin: 07/03/18 20:24 Dose: 50 mg Zolpidem Tartrate (Ambien) 10 mg PO HS PRN PRN Reason: Insomnia Stop: 08/28/18 14:32 General: weak, appears older HEENT: NC/AT, PERRLA, thinning hair, poor dentition Neck: Supple, No JVD, No LAD Lungs: CTAB Cardiovascular: RRR, Normal S1, Normal S2, without murmur Abdomen: soft, non-tender, globular, positive bowel sound Extremities: excoriation, contracture Neurological: no change, disorganized Internal Medicine Assmt/Plan - Assessment Assessment: ASSESSMENT AND PLAN: Acute back pain, new diagnosis left kidney mass on CT, renal insufficiency, COPD, low back pain, psych disorder, leukocytosis, elevated lipase, hematuria. - Plan Plan: for renal bx in am We will continue the patient on aggressive IV hydration. We will review the patient's CT and plan accordingly. We will refer the patient to Hematology/Oncology. We will review the patient's medication. We will admit for further management. Nutritional Asmnt/Malnutr-PDOC - Dietary Evaluation Malnutrition Findings (Please click <Entered> for more info): Nutritional Asmnt/Malnutrition Start: 07/01/18 14: 23 Text: Status: Complete Freq: Protocol: Document 07/01/18 14:27 [email or web address] (Rec: 07/01/18 14:37 [email or web address] VI) Nutritional Asmnt/Malnutrition Patient General Information Nutritional Screening Moderate Risk Diagnosis kidney mass, left lower back pain Pertinent Medical Hx/Surgical Hx COPD, chronic low back pain, herniated disk, psych disorder Subjective Information Pt was in bed, alert, at time of visit. Educated pt on renal diet. Pt requested 2 coffees for breakfast and hot tea for dinner. PO intake is 75-100% per EMR. Current Diet Order/ Nutrition Support renal Patient / S.O Can Pertinent Medications D5-0.9%ns, zofran Pertinent Labs 07/01 cl 108, cr 1.7, alb 3.2 1/2 BUN 27, cr 1.8, alb 3.9 Nutritional Hx/Data Height 1.73 m Height (Calculated Centimeters) 172.7 Current Weight (lbs) 61.689 kg Weight (Calculated Kilograms) 61.7 Weight (Calculated Grams) 71848.6 [place] Body Weight 154 Body Mass Index (BMI) 20.7 Weight Status Approriate GI Symptoms GI Symptoms None Last BM not indicated Difficult in: None Food Allergies Yes: shellfish derived Usual diet at home Pt has been following renal diet d/t renal dysfunction, understanding protein restriction. Skin Integrity/Comment: matthew carter 21 Current %PO Good (75-100%) Estimated Nutritional Goals BEE in Kcals: Using Current wt Calories/Kcals/Kg 25-30 Kcals Calculated 5294-5363 Protein: Using Current wt Protein g/k.75-0.8 Protein Calculated 45-49 Fluid: ml 5676-0164 (1ml/kcal) Nutritional Problem 1. Problem Problem altered nutrition related lab values Etiology renal dysfunction Signs/Symptoms: BUN 22-27, Cr 1.7-1.8 Malnutrition Alert Is there a minimum of two criteria No selected? Query Text:Check all the applicable criteria. A minimum of two criteria are recommended for diagnosis of either severe or non-severe malnutrition. Malnutrition Related to Morbid Obesity Malnutrition related to morbid obesity No Intervention/Recommendation Comments 1. Continue with renal diet as ordered. 2. Monitor PO intake, wt, labs and skin integrity 3. F/U as moderate risk in 3-5 days Expected Outcomes/Goals Expected Outcomes/Goals Goal: PO intake to meet at least 75% of nutritional needs and improved labs. Reviewed by Vijaya Tinajero RD
--- NOTE | 2018-07-05 00:36 | Discharge Summary ---
DATE OF DISCHARGE: 07/04/2018 HOSPITAL COURSE: The patient was to go for needle biopsy of the left kidney mass today at [facility]. The radiologist called me to discuss this and suggested that we consider not doing the biopsy as there is a small risk of seeding of the needle tract. We discussed this and I explained to him that the risk was extremely small and considered almost negligible these days. Additionally, the patient cannot get contrast. Therefore, we will not be able to define the mass definitively to recommend surgery, which can be a major operation consisting of a radical nephrectomy or partial radical nephrectomy. After some discussion, the radiologist agreed to proceed. On exam, the patient is afebrile. Blood pressure is improved and stable. His head and neck exam is unremarkable. Congestion is less and his breath sounds are normal without rales or rhonchi. The abdomen is soft. Left flank remains mildly tender to percussion, otherwise, there are no masses or distention. Extremities, no edema. Lab work unremarkable, reviewed so far. Biopsy will be done hopefully and give us a definitive diagnosis in a day or two. IMPRESSION: 1. Left renal mass with hematuria solid on ultrasound. Awaiting biopsy confirmation for malignancy. 2. Bipolar disorder, currently stable. 3. Homelessness and substance abuse. Additional social risk factors for future followup and management. 4. Hypertension, better controlled. 5. History of peripheral vascular disease. No recent events. JOB# [id number]
--- NOTE | 2018-07-05 12:54 | Progress Notes ---
DATE: 07/05/2018 UROLOGY PROGRESS NOTE SUBJECTIVE: The patient does not get the biopsy done yesterday, in spite of all our attempts. The radiologists at [facility] needed some more blood tests and a longer time for n.p.o. status. It is quite unfortunate and a preventable delay. OBJECTIVE: VITAL SIGNS: On exam, he is afebrile. He is maintaining his blood pressure much better than before and he is saturating normally. LUNGS: Clear to auscultation. HEART: Sounds sinus rhythm. ABDOMEN: Soft and nondistended. Left flank remains mildly tender to percussion. EXTREMITIES: No edema. LABORATORY DATA: Reviewed and are in normal range to undergo the biopsy. IMPRESSION: 1. Left renal mass about 4.5-5.5 cm, solid on ultrasound. Await biopsy confirmation for further recommendations. 2. History of bipolar disorder, homelessness and substance abuse, chronic conditions that will require attention for surgical treatment if this turns out to be malignancy. 3. History of hypertension, now better controlled. Hopefully, he will be compliant with the medications after discharge. 4. History of peripheral vascular disease, no recent events. PLAN: The patient can be discharged after the biopsy once he is stable for a few hours and see me in the office next week to discuss the biopsy and treatment plan. I explained and discussed with the nurses and the charge nurse as well. JOB# [id number]
--- NOTE | 2018-07-05 13:59 | Diagnostic Imaging Report ---
CT-guided needle biopsy, left renal mass History: Left renal mass Comparison: CT abdomen and pelvis performed at [facility] on 06/29/2018 Technique/procedure: Total DLP 814, CTD I 60 Informed consent was obtained and sterile techniques were utilized. 10 mL's of 1% lidocaine was administered for local anesthetic. Using coaxial technique and CT guidance, 4 core samples of left renal mass was performed and administered to pathology for further analysis. The patient tolerated the procedure with no immediate complications. Postprocedure instructions were administered. IMPRESSION: Successful CT-guided left renal mass biopsy as detailed above.
[2018-07-05] MEDS ORDERED: Hydrocodone/APAP 5mg/325mg Tab PO PRN (15:40)
[2018-07-05] MEDS ORDERED: Morphine Sulfate 2 mg/mL 1mL Syr IVP ONE (15:40)
--- NOTE | 2018-07-05 16:12 | General Progress Note ---
Subjective - Review of Systems Service Date: 07/05/18 Subjective: s/p kidney mass biopsy left flank pain ambulatory Objective - Results Result Diagrams: 07/04/18 04:30 07/04/18 04:30 Recent Labs: Laboratory Last Values WBC 6.1 Th/cmm (4.8-10.8) 07/04/18 04:30 RBC 3.21 Mil/cmm (3.80-5.80) L 07/04/18 04:30 Hgb 10.2 gm/dL (12-16) L 07/04/18 04:30 Hct 30.1 % (41.0-60) L 07/04/18 04:30 MCV 93.7 fl (80-99) 07/04/18 04:30 MCH 31.8 pg (27.0-31.0) H 07/04/18 04:30 MCHC Differential 34.0 pg (28.0-36.0) 07/04/18 04:30 RDW 12.4 % (11.5-20.0) 07/04/18 04:30 Plt Count 260 Th/cmm (150-400) 07/04/18 04:30 MPV 7.7 fl 07/04/18 04:30 Add Manual Diff YES 07/01/18 06:45 Neutrophils % 58.7 % (40.0-80.0) 07/04/18 04:30 Band Neutrophils % 2 % (0-10) 07/01/18 06:45 Lymphocytes % 22.2 % (20.0-50.0) 07/04/18 04:30 Monocytes % 14.9 % (2.0-10.0) H 07/04/18 04:30 Eosinophils % 3.4 % (0.0-5.0) 07/04/18 04:30 Basophils % 0.8 % (0.0-2.0) 07/04/18 04:30 Neutrophils (Manual) 71 % (40-80) 07/01/18 06:45 Lymphocytes 12 % (20-50) L 07/01/18 06:45 Monocytes 13 % (2-10) H 07/01/18 06:45 Eosinophils 2 % (0-5) 07/01/18 06:45 Basophils 0 % (0-3) 07/01/18 06:45 PT 9.8 SECONDS (9.5-11.5) 06/29/18 11:45 INR 0.94 (0.5-1.4) 06/29/18 11:45 Sodium 142 mEq/L (136-145) 07/04/18 04:30 Potassium 4.7 mEq/L (3.5-5.1) 07/04/18 04:30 Chloride 111 mEq/L (98-107) H 07/04/18 04:30 Carbon Dioxide 23.9 mEq/L (21.0-31.0) 07/04/18 04:30 Anion Gap 11.8 (7.0-16.0) 07/04/18 04:30 BUN 19 mg/dL (7-25) 07/04/18 04:30 Creatinine 1.6 mg/dL (0.7-1.3) H 07/04/18 04:30 Est GFR ( Amer) 56.1 ml/min (>90) 07/04/18 04:30 Est GFR (Non-Af Amer) 46.3 ml/min 07/04/18 04:30 BUN/Creatinine Ratio 11.9 07/04/18 04:30 Glucose 85 mg/dL (70-105) 07/04/18 04:30 Calcium 9.2 mg/dL (8.6-10.3) 07/04/18 04:30 Magnesium 1.9 mg/dL (1.9-2.7) 07/01/18 06:45 Total Bilirubin 0.4 mg/dL (0.3-1.0) 07/01/18 06:45 AST 16 U/L (13-39) 07/01/18 06:45 ALT 8 U/L (7-52) 07/01/18 06:45 Alkaline Phosphatase 54 U/L (34-104) 07/01/18 06:45 Creatine Kinase 159 U/L (30-223) 06/29/18 11:45 Troponin I 0.01 ng/mL (0.01-0.05) 06/29/18 11:45 B-Natriuretic Peptide 163.0 pg/mL (5.0-100.0) H 07/01/18 06:45 Total Protein 6.4 gm/dL (6.0-8.3) 07/01/18 06:45 Albumin 3.2 gm/dL (4.2-5.5) L 07/01/18 06:45 Globulin 3.2 gm/dL 07/01/18 06:45 Albumin/Globulin Ratio 1.0 (1.0-1.8) 07/01/18 06:45 Triglycerides 81 mg/dL (<150) 06/29/18 11:45 Cholesterol 192 mg/dL (<200) 06/29/18 11:45 LDL Cholesterol Direct 129 mg/dL (75-193) 06/29/18 11:45 HDL Cholesterol 56 mg/dL (23-92) 06/29/18 11:45 Amylase 138 U/L (29-103) H 06/29/18 11:45 Lipase 97 U/L (11-82) H 06/29/18 11:45 Urine Source CLEAN C 06/29/18 12:58 Urine Color YELLOW 06/29/18 12:58 Urine Clarity SLIGHTLY HAZY (CLEAR) 06/29/18 12:58 Urine pH 6.5 (4.6 - 8.0) 06/29/18 12:58 Ur Specific [place] 1.015 (1.005-1.030) 06/29/18 12:58 Urine Protein 100 mg/dL (NEGATIVE) H 06/29/18 12:58 Urine Glucose (UA) NEGATIVE mg/dL (NEGATIVE) 06/29/18 12:58 Urine Ketones NEGATIVE mg/dL (NEGATIVE) 06/29/18 12:58 Urine Blood LARGE (NEGATIVE) H 06/29/18 12:58 Urine Nitrate NEGATIVE (NEGATIVE) 06/29/18 12:58 Urine Bilirubin NEGATIVE (NEGATIVE) 06/29/18 12:58 Urine Urobilinogen 0.2 E.U./dL (0.2 - 1.0) 06/29/18 12:58 Ur Leukocyte Esterase NEGATIVE (NEGATIVE) 06/29/18 12:58 Urine RBC 2-5 /hpf (0-5) H 06/29/18 12:58 Urine WBC 0-2 /hpf (0-5) 06/29/18 12:58 Ur Epithelial Cells OCCASIONAL /lpf (FEW) 06/29/18 12:58 Urine Bacteria NONE SEEN /hpf (NONE SEEN) 06/29/18 12:58 Valproic Acid 47.3 ug/mL (50.0-100.0) L 06/29/18 11:45 - Physical Exam Vitals and I&O: Vital Signs Temp 97.6 F 07/05/18 15:55 Pulse 68 07/05/18 15:55 Resp 18 07/05/18 15:55 BP 122/72 07/05/18 15:55 Pulse Ox 99 07/05/18 15:55 Intake & Output 07/04/18 07/05/18 07/05/18 18:59 06:59 18:59 Intake Total 2500 0 Output Total 2000 Balance 2500 -2000 Weight (lbs) 66.224 kg 66.224 kg Intake: Intake, IV Amount 1000 D5-0.9%Ns 1,000 ml @ 100 1000 mls/hr IV .Q10H [facility] Rx#: [id number] Oral 1500 0 Output: Urine 2000 Other: # Voids 1,100 # Bowel Movements 1 0 Weight Source Bedscale Bedscale Active Medications: Current Medications Acetaminophen (Tylenol) 650 mg PO Q4H PRN PRN Reason: Pain Or Fever above 101F Stop: 08/28/18 14:32 Last Admin: 07/05/18 13:01 Dose: 650 mg Acetaminophen/Hydrocodone Bitart (Savage 5mg/325mg) 1 tab PO Q4H PRN PRN Reason: Pain (Severe) Stop: 09/03/18 15:39 Al Hydrox/Mg Hydrox/Simethicone (Maalox) 30 ml PO Q6H PRN PRN Reason: Dyspepsia Stop: 08/28/18 14:32 Albuterol Sulfate (Albuterol 2.5mg/3ml Neb Ud) 2.5 mg HHN Q2HRT PRN PRN Reason: Shortness of Breath or Wheeze Stop: 08/28/18 14:32 Amlodipine Besylate (Norvasc) 10 mg PO DAILY [facility] Stop: 08/31/18 16:44 Last Admin: 07/05/18 13:00 Dose: 10 mg Aripiprazole (Abilify) 15 mg PO HS [facility]; Protocol Stop: 08/28/18 20:59 Last Admin: 07/04/18 21:08 Dose: 15 mg Divalproex Sodium (Depakote Dr) 1,000 mg PO 1300 [facility]; Protocol Stop: 08/29/18 12:59 Last Admin: 07/05/18 13:00 Dose: 1,000 mg Escitalopram Oxalate (Lexapro) 10 mg PO DAILY [facility]; Protocol Stop: 08/29/18 08:59 Last Admin: 07/05/18 12:59 Dose: 10 mg Ibuprofen (Motrin) 600 mg PO TID PRN PRN Reason: moderate pain Stop: 09/03/18 20:59 Ipratropium [place] (Atrovent Neb 0.5mg/2.5ml) 0.5 mg IH Q2HRT PRN PRN Reason: Shortness of Breath or Wheeze Stop: 08/28/18 14:32 Lisinopril (Zestril) 20 mg PO DAILY [facility] Stop: 08/31/18 16:44 Last Admin: 07/05/18 13:01 Dose: 20 mg Ondansetron HCl (Zofran) 4 mg IV Q8H PRN PRN Reason: Nausea / Vomiting Stop: 08/28/18 14:32 Trazodone HCl (Desyrel) 50 mg PO HS [facility]; Protocol Stop: 08/28/18 20:59 Last Admin: 07/04/18 21:09 Dose: 50 mg Zolpidem Tartrate (Ambien) 10 mg PO HS PRN PRN Reason: Insomnia Stop: 08/28/18 14:32 General: Alert HEENT: Atraumatic Neck: Supple Cardiovascular: Regular rate Lungs: Clear to auscultation Abdomen: Soft Assessment/Plan - Assessment Assessment: Left kidney mass exceeding 4 cm, which is not cyst. The scan was done without contrast because of the renal functions. This mass is suspicious of renal cell carcinoma and will require evaluation by urologist for possible left partial or total nephrectomy. 07/05/18: s/p left kidney mass biopsy. may follow path as outpatient. Nutritional Asmnt/Malnutr-PDOC - Dietary Evaluation Malnutrition Findings (Please click <Entered> for more info): Nutritional Asmnt/Malnutrition Start: 07/01/18 14: 23 Text: Status: Complete Freq: Protocol: Document 07/01/18 14:27 [email or web address] (Rec: 07/01/18 14:37 [email or web address] VI) Nutritional Asmnt/Malnutrition Patient General Information Nutritional Screening Moderate Risk Diagnosis kidney mass, left lower back pain Pertinent Medical Hx/Surgical Hx COPD, chronic low back pain, herniated disk, psych disorder Subjective Information Pt was in bed, alert, at time of visit. Educated pt on renal diet. Pt requested 2 coffees for breakfast and hot tea for dinner. PO intake is 75-100% per EMR. Current Diet Order/ Nutrition Support renal Patient / S.O Can Pertinent Medications D5-0.9%ns, zofran Pertinent Labs / cl 108, cr 1.7, alb 3.2 1/2 BUN 27, cr 1.8, alb 3.9 Nutritional Hx/Data Height 1.73 m Height (Calculated Centimeters) 172.7 Current Weight (lbs) 61.689 kg Weight (Calculated Kilograms) 61.7 Weight (Calculated Grams) 38243.6 [place] Body Weight 154 Body Mass Index (BMI) 20.7 Weight Status Approriate GI Symptoms GI Symptoms None Last BM not indicated Difficult in: None Food Allergies Yes: shellfish derived Usual diet at home Pt has been following renal diet d/t renal dysfunction, understanding protein restriction. Skin Integrity/Comment: intact, matthew 21 Current %PO Good (75-100%) Estimated Nutritional Goals BEE in Kcals: Using Current wt Calories/Kcals/Kg 25-30 Kcals Calculated 0427-4287 Protein: Using Current wt Protein g/k.75-0.8 Protein Calculated 45-49 Fluid: ml 7089-6911 (1ml/kcal) Nutritional Problem 1. Problem Problem altered nutrition related lab values Etiology renal dysfunction Signs/Symptoms: BUN 22-27, Cr 1.7-1.8 Malnutrition Alert Is there a minimum of two criteria No selected? Query Text:Check all the applicable criteria. A minimum of two criteria are recommended for diagnosis of either severe or non-severe malnutrition. Malnutrition Related to Morbid Obesity Malnutrition related to morbid obesity No Intervention/Recommendation Comments 1. Continue with renal diet as ordered. 2. Monitor PO intake, wt, labs and skin integrity 3. F/U as moderate risk in 3-5 days Expected Outcomes/Goals Expected Outcomes/Goals Goal: PO intake to meet at least 75% of nutritional needs and improved labs. Reviewed by Vijaya Tinajero RD
--- NOTE | 2018-07-05 19:45 | Discharge Summary ---
DATE OF DISCHARGE: 07/05/2018 CHIEF COMPLAINT: Severe back pain. FINAL DIAGNOSES: Left kidney mass, status post biopsy, renal insufficiency, acute and chronic back pain, chronic obstructive pulmonary disease, psych disorder, leukocytosis, and hematuria. HISTORY: This is a 67-year-old male with history of COPD, chronic low back pain, herniated disk, psych disorder, admitted from nursing facility now noted to have a mass in the kidney, admitted for further management. PHYSICAL EXAMINATION: VITAL SIGNS: Blood pressure 133/71, respirations 20, pulse 74, temperature 98.0. GENERAL: Elderly male, appears stated age. NECK: Supple. No mass. LUNGS: Equal breath sounds, otherwise clear to auscultation. HEART: Regular rate and rhythm without appreciable murmur. ABDOMEN: Soft, globular. EXTREMITIES: Positive excoriation. NEUROLOGIC: Limited. HOSPITAL COURSE: The patient was admitted to telemetry, continued on aggressive treatment with IV hydration. Kidney function did improve. The patient was referred to Dr. Hoskins, Oncology and Dr. Min from Urology. The patient underwent a left kidney biopsy. Pathology is pending. The patient to be followed closely on an outpatient basis. CONDITION ON DISCHARGE: Fair. DISCHARGE INSTRUCTIONS: The patient to continue current care. The patient will follow up in one week by Urology and in 2 weeks by Oncology. We will follow the patient closely. [facility]# [id number]
== END 2018-07-05 18:55 | DRG 686 ==
LOC: ER 11:04 → TELE 13:42
PROVIDERS: ADMIT Internal Medicine; ATTEND Internal Medicine
PROC: 0TB13ZX Excision of Left Kidney, Percutaneous Approach, Diagnostic (ICD-10-PCS; principal; 2018-07-05)
DX: C64.2 Malignant neoplasm of left kidney, except renal pelvis (principal); K85.90 Acute pancreatitis without necrosis or infection, unspecified; E44.0 Moderate protein-calorie malnutrition; R31.9 Hematuria, unspecified; N18.3 Chronic kidney disease, stage 3 (moderate); I12.9 Hypertensive chronic kidney disease with stage 1 through stage 4 chronic kidney disease, or unspecified chronic kidney disease; J44.9 Chronic obstructive pulmonary disease, unspecified; K21.9 Gastro-esophageal reflux disease without esophagitis; R56.9 Unspecified convulsions; M19.90 Unspecified osteoarthritis, unspecified site; F17.210 Nicotine dependence, cigarettes, uncomplicated; N20.0 Calculus of kidney; N28.1 Cyst of kidney, acquired; E86.0 Dehydration; E88.09 Other disorders of plasma-protein metabolism, not elsewhere classified; G89.29 Other chronic pain; M54.5 Low back pain; F29 Unspecified psychosis not due to a substance or known physiological condition; I73.9 Peripheral vascular disease, unspecified; F19.10 Other psychoactive substance abuse, uncomplicated; Z91.013 Allergy to seafood; Z59.0 Homelessness; Z56.0 Unemployment, unspecified; Z82.49 Family history of ischemic heart disease and other diseases of the circulatory system; Z68.22 Body mass index [BMI] 22.0-22.9, adult
CPT/HCPCS: 36415-UA; 71045-TC; 76770-TC; 77012-TC; 80048-TC; 80053-TC; 80061-TC; 80164-TC; 81001-TC; 82150-TC; 82550-TC; 83690-TC; 83735-TC; 83880-TC; 84484-TC; 85007-TC; 85025-TC; 85610-TC; 93005; 94760; 96374; J1885; J7030; J7042; Z7610